=== PATIENT | male | born 1955 | race Caucasian/White ===

== ENCOUNTER 2020-09-18 13:28 | Outpatient (REF) | payer MEDICARE, MEDICAID, SELFPAY ==
--- NOTE | 2020-09-18 13:35 | XR_ITS ---
EXAMINATION: XR LUMBOSACRAL SPINE CLINICAL INFORMATION: Low back pain. COMPARISON: CT abdomen and pelvis of 12/07/2017. TECHNIQUE: Three views of the lumbosacral spine. FINDINGS: There appears be osteopenia in visualized bones. There are 5 non-rib bearing lumbar vertebra. There is a superior endplate compression fracture with loss of approximately 30% height of the L2 vertebral body. There is some marginal spurring present with some sclerosis and this is age-indeterminate, however, this was not present on prior study of December 07, 2017. There is again noted to be superior endplate compression fracture of L5 which is chronic. No spondylolisthesis is identified. There is some mild narrowing of the L5-S1 disc space. Facet arthropathy is seen along the right side L4-S1. There is degenerative spurring inferior aspect of the left sacroiliac joint. There is marginal spurring seen with some bridging anteriorly of the lower thoracic spine. 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 XR/XR lumbar spine 2-3V IMPRESSION: Osteopenia. Interval compression fracture L2 vertebral body since prior CT scan of December 07, 2017. 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
== END 2020-09-18 13:29 | disposition home or self-care (01) ==
LOC: HO.XRAY 13:28
PROVIDERS: Visit Provider Internal Medicine Geriatric Medicine
DX: M54.5 Low back pain (principal)
CPT/HCPCS: 72100

== ENCOUNTER 2020-10-30 12:30 | Outpatient (REF) | payer MEDICARE, MEDICAID, SELFPAY ==
--- NOTE | 2020-10-30 12:35 | MM_ITS ---
EXAMINATION: BONE DENSITOMETRY CLINICAL INDICATION: Screening for osteoporosis. COMPARISON: None (current study represents initial baseline exam). TECHNIQUE: Using a Hashable DXA System (software version: 13.1) manufactured by [employer], dual-energy x-ray absorptiometry was performed of the lumbar spine and left hip. The images are of good technical quality. Summary results are attached. FINDINGS: AP SPINE L1-L4 (excluding L2): The data of L1-L4 has been changed to exclude the L2 vertebral body, because degenerative changes at this level may cause overestimation of lumbar spine density. BMD 1.017 g/cm2, Z-score -1.5, T-score -1.6, osteopenia. LEFT FEMUR, NECK: BMD 0.819 g/cm2, Z-score -1.1, T-score -1.9, osteopenia. LEFT FEMUR, TOTAL: BMD 0.940 g/cm2, Z-score -0.8, T-score -1.1, osteopenia. IDENTIFIED RISK FACTORS: Height loss, history of fracture (adult), secondary osteoporosis, tobacco use (current smoker). HISTORY OF FRACTURE: Compression deformity L5, CT 2018. MEDICATIONS: Calcium. MM/XR DEXA axial skeleton IMPRESSION: 1. DIAGNOSIS: Osteopenia based on the lowest T-score value of -1.9 in the femoral neck applying World Health Organization criteria. 2. 10-YEAR FRACTURE RISK PREDICTION, FRAX: Major osteoporotic fracture (clinical spine, forearm, hip or shoulder) 12.2%. Hip fracture 3.7%. 3. Treatment Recommendations: NOF guidelines recommend consideration for treatment in postmenopausal women and men age 50 and older presenting with the following: -A hip or vertebral (clinical or morphometric) fracture. -T-score less than or equal to -2.5 at the femoral neck or spine after appropriate evaluation to exclude secondary causes. -Low bone mass at the hip or spine and a 10-year fracture probability by FRAX of greater than or equal to 3% for hip fracture or greater than or equal to 20% for major osteoporotic fracture based on the [place] adapted WHO algorithm. 4. Other Recommendations: All treatment decisions require clinical judgment and consideration of individual patient factors, including patient preferences, comorbidities, previous drug use, risk factors not captured in the FRAX model (e.g. frailty, falls, vitamin D deficiency, increased bone turnover, interval significant decline in bone density) and possible under or overestimation of fracture risk by FRAX. Additional medical evaluation for secondary cause of low bone mineral density may be appropriate. FUTURE SCAN RECOMMENDATION: People with diagnosed cases of osteoporosis or at high risk for fracture should have regular bone mineral density tests. For patients eligible for Medicare, routine testing is allowed once every 2 years. The testing frequency can be increased to one year for patients who have rapidly progressing disease, those who are receiving or discontinuing medical therapy to restore bone mass, or have additional risk factors.
== END 2020-10-30 12:31 | disposition home or self-care (01) ==
LOC: HO.MAMMO 12:30
PROVIDERS: PCP Internal Medicine Geriatric Medicine; Visit Provider Internal Medicine Geriatric Medicine
DX: Z13.820 Encounter for screening for osteoporosis (principal); M85.88 Other specified disorders of bone density and structure, other site
CPT/HCPCS: 77080

== ENCOUNTER 2021-04-22 04:23 | Emergency (ER) | payer MEDICARE, MEDICAID, SELFPAY ==
[2021-04-22 04:30] VITALS: BP 125/68; BP 136/80; PULSE 118; PULSE 120; RESP 16; TEMP 36.6; O2SAT 96; O2SAT 97; BMI 23.7
--- NOTE | 2021-04-22 05:14 | ECG_ITS ---
Test Reason : cp Blood Pressure : / mmHG Vent. Rate : 084 BPM Atrial Rate : 084 BPM P-R Int : 152 ms QRS Dur : 134 ms QT Int : 400 ms P-R-T Axes : 064 -51 010 degrees QTc Int : 472 ms Normal sinus rhythm Right bundle branch block Left anterior fascicular block Bifascicular block Septal infarct , age undetermined Abnormal ECG When compared with ECG of 01-MAY-2018 07:12, Vent. rate has increased BY 29 BPM (RBBB and left anterior fascicular block) has replaced Incomplete right bundle branch block Referred By: Kristy Daniels Electronically Signed By:RENETTA HAQ MD
--- NOTE | 2021-04-22 05:32 | ED_ITS ---
HPI - General Adult General Chief complaint: General Medical Stated complaint: Anxiety/palpitations Time Seen by Provider: 04/22/21 05:14 History of Present Illness HPI narrative: Patient is a 65-year-old male with a history of panic attacks. Patient complained of sudden onset of palpitation. Similar to previous bouts of palpitations. Patient on arrival had a great map. Symptom has completely resolved. No chest pain or shortness breath no dizziness no nausea no vomiting. Related Data Allergies Allergy/AdvReac Type Severity Reaction Status Date / Time Penicillins Allergy Unknown RED FACE Unverified 07/30/20 16:25 monosodium glutamate AdvReac Unknown FUNNY Unverified 07/30/20 16:25 TASTE IN MOUTH Monosodium Glutamate Allergy Unknown Uncoded 08/01/16 00:00 PCN Allergy Unknown facial Uncoded 08/01/16 00:00 flushing Penicillin Allergy Unknown Uncoded 11/23/12 00:00 Review of Systems Review of Systems: Constitutional: No Weight loss, No Fever, No Chills, No Night Sweats, No Fatigue, No Malaise ENT/Mouth: No Hearing loss, No Ear Pain, No Nasal Congestion, No Sinus Pain, No Hoarseness, No sore throat, No Rhinorrhea, No Swallowing Difficulty Eyes: No Eye Pain, No Swelling, No Redness, No Foreign Body, No Discharge, No Vision Changes Cardiovascular: No Chest Pain, No SOB, No Dyspnea on Exertion, No Orthopnea, No Edema, No Palpitations Respiratory: No Cough, No Sputum, No Wheezing, No Smoke Exposure, No Dyspnea Gastrointestinal: No Nausea, No Vomiting, No Diarrhea, No Constipation, No abdominal Pain, No Hematochezia, No Melena Genitourinary: no irregular bleeding, No Dysuria, No Urinary Frequency, No Hematuria, No Urinary Incontinence, No Urgency, No Flank Pain, No Urinary Flow Changes, No Hesitancy Musculoskeletal: No joint pain, No Myalgias, No Joint Swelling Skin: No Skin Lesions, No rash Neuro: No Weakness, No Numbness, No Paresthesias, No Loss of Consciousness, No Dizziness, No Headache Psych: No Anxiety/Panic, No Depression, No SI/HI/AH/VH, No Social Issues, Heme/Lymph: No Bruising, No Bleeding,No Lymphadenopathy Endocrine: No Polyuria, No Polydipsia, No Temperature Intolerance PMFSH Past Medical History Attestation statement: The following information was validated with the patient. Social History Social History Advance Directives: No Advance Directives Information Provided: No Physical Exam Vital Signs: Vital Signs: Last Vital Signs Temp 98 F 04/22/21 04:30 Pulse 118 H 04/22/21 04:30 Resp 16 04/22/21 04:30 BP 125/68 04/22/21 04:30 Pulse Ox 97 04/22/21 04:30 Body Mass Index 23.7 Appearance: Alert. Oriented X3. No acute distress. Eyes: Pupils equal, round and reactive to light. ENT: Pharynx normal. Neck: Normal inspection. Neck supple. No lymph nodes noted. No crepitus CVS: Normal heart rate and rhythm. Pulses normal. Normal S1 and S2 Respiratory: No respiratory distress. Breath sounds normal. No Wheezing. No rales Abdomen: Soft and nontender. No rigidity. No distention. good BS x4 Skin: Skin warm and dry. Normal skin color. Normal skin turgor. Extremities: No lower extremity edema. Neurovascular intact to all extremities. No Lacerations. No Rash Neuro: Oriented X 3. No motor deficit. No sensory deficit. Moving all extermities. No slurred speech Medical Decision Making MDM Narrative Medical decision making narrative: Patient well-appearing no acute distress. Symptom has completely resolved. Patient's EKG is unchanged from 2018. Will discharge patient home in stable condition. Patient has had similar bouts when ECG Data Attestation: I personally reviewed and interpreted this ECG as follows: Interpretation: Sinus heart rate was 80 there is evidence for right bundle- branch block. No acute ST segment elevation noted. Discharge Plan Discharge Clinical Impression: Heart palpitations Patient Disposition: Home, Self-Care Instructions: Panic Attack (ED) Referrals: Physician,Unknown [Primary Care Provider] - 2 days
== END 2021-04-22 06:02 | disposition home or self-care (01) ==
PROVIDERS: Emergency Provider Emergency Medicine Emergency Medical Services
DX: R00.2 Palpitations (principal)
CPT/HCPCS: 93005; 99283

== ENCOUNTER 2021-06-01 10:27 | Outpatient (REF) | payer MEDICARE, MEDICAID, SELFPAY ==
--- NOTE | 2021-06-01 12:45 | MHC.AU.ANO ---
Adult Audiological Evaluation Date of Visit: 06/01/21 Customer Engineering Specialist Used: Not Applicable Reason for Appointment: Audiologic evaluation due to hearing difficulties, right ear greater than left, particularly understanding speech when background noise is present. Javier reports he has a history of cerumen in both ears. Cerumen removal was attempted at the Primary Care Physician's office; however, the procedure was unsuccessful with only a small amount of cerumen being able to be removed. Does patient feel they have a hearing loss?: Yes If Yes, Which Ear?: Both Ears When Was Hearing Difficulty First Noticed?: Unsure Has hearing been tested previously?: No Hearing Handicap Inventory: HHIE SCORE: 16 Based on HHIE score, patient has: Mild to moderate perceived hearing handicap Ear History: History of Ear Wax Buildup: Both Ears Ear used on the phone: Left Ear History of occupational noise exposure?: No History: History: No Medical History: Medical History: Mumps,Tobacco Use, Mild COPD, Anxiety and Bipolar disorder, Osteopenia, Compression fracture of vertebra Medication List: Multivitamin, Klonopin, Seroquel, Zyprexa, Lamictal, Vistaril, Ventolin, Albuterol, Atrovent HFA, Omeprazole, Baclofen, Otoscopy: Right Ear: Completely occluding cerumen. Able to remove prior to testing today. Left Ear: Completely occluding cerumen. Able to remove prior to testing today. Tympanometry: Tympanometry performed due to: To assess integrity of the middle ear system Right Ear: Hypercompliant Middle Ear System (Type Ad) Left Ear: Hypercompliant Middle Ear System (Type Ad) Otoacoustic Emissions Not performed at today's visit. Hearing Evaluation: Transducer(s) Used: Insert Earphones Bone Conduction Method: Conventional Audiometry Stimuli Used: Pure Tones Right Ear: Description of Hearing: Normal hearing thresholds at 250-1000 Hz, sloping to a moderately-severe sensorineural hearing loss at 4000 Hz, rising to moderate loss at 8000 Hz Left Ear: Description of Hearing: Normal hearing thresholds at 250-1000 Hz, sloping to a moderately-severe sensorineural hearing loss at 6000 Hz, rising to moderate loss at 8000 Hz Speech Recognition Threshold (SRT): Method Used: Monitored Live Voice Stimuli Used: Spondee Words Right Ear: 20 dB HL Left Ear: 20 dB HL Word Discrimination: Method: Recorded Lists Word Lists Used: NU-6 Right Ear: 92% at 60 dB HL Left Ear: 88% at 60 dB HL QuickSIN: Binaural Quick SIN Test: 2 dB SNR Loss. This score falls within the normal range suggesting Javier does not experience any more difficulty than expected understanding speech with increasing levels of background noise in this controlled test environment. Interpretation of Results: With this moderately-severe high frequency sensorineural hearing loss, Javier can hear , but may have difficulty understanding speech, particularly when someone is speaking to him from a distance or background noise is present. It is likely the significant amount of impacted cerumen, right ear greater than left, was causing the loudness sounds and speech to be reduced with a muffled sound quality. In addition, several of Javier's medications (such as Klonopin and Seroquel) may cause the auditory system and processing of auditory information to slow down which can influence speech understanding, particularly when noise is present or Javier's attention is not focused on the speaker. Recommendations: - Since the loudness and quality of sound and speech will increase given the significant amount of cerumen removed today, I would like Javier to get used to the new sound and determine if he continues to experience hearing difficulties. The results of today's test suggest he may be a candidate to try binaural hearing aids. - Will send a 6 month audiologic re-evaluation reminder card. If hearing changes or Javier reports his hearing difficulties are interfering with daily communication, a trial period with amplification will be discussed at that appointment. Diagnosis: Primary Diagnosis: H90.3 Bilateral Sensorineural Hearing Loss Secondary Diagnosis: H61.23 Impacted Cerumen, Bilateral Services Performed: Comprehensive Audiological Evaluation (CPT 92657) Tympanometry (CPT 06065) Signature: Provider: Lukasz Bustamante, [facility]
== END 2021-06-01 10:28 | disposition home or self-care (01) ==
LOC: HO.SH 10:27
PROVIDERS: PCP Internal Medicine Geriatric Medicine; Visit Provider Registered Nurse Community Health
DX: H90.3 Sensorineural hearing loss, bilateral (principal); H61.23 Impacted cerumen, bilateral
CPT/HCPCS: 92557; 92567

== ENCOUNTER 2022-09-15 15:41 | Outpatient (REF) | payer MEDICARE, MEDICAID, SELFPAY ==
--- NOTE | ~2022-09-15 | CT_ITS ---
EXAMINATION: CT CHEST SCREENING CLINICAL INFORMATION: Current smoker. 51 pack year history. COMPARISON: Previous chest CT April 2019 and chest x-ray February 2020 TECHNIQUE: Multidetector volumetric CT imaging of the chest is performed without contrast using low dose technique. Additional 2D coronal and sagittal reformatted images and axial 3D maximum intensity projection (MIP) images are generated on the CT workstation. This CT examination was performed using dose optimization techniques as appropriate, variously including the following: *Automated exposure control *Adjustment of mA and/or kV according to patient size (this includes techniques or standardized protocols for targeted exams where dose is matched to indication/reason for exam; i.e. extremities or head) *Use of iterative reconstruction technique DLP: 55 mGy-cm FINDINGS: LUNGS: There is evidence of emphysema. There are increased peripheral reticular markings questionable for mild interstitial lung disease. There is linear scarring or subsegmental atelectasis at the lung bases. There is increased soft tissue seen at the ronan and in the left proximal mainstem bronchus. MEDIASTINUM: The mediastinum is normal. CORONARY ARTERY CALCIFICATION: Mild PLEURA: There is no pleural effusion. No pleural mass or thickening. AXILLA: No lymphadenopathy. UPPER ABDOMEN: Gallstones. Small left renal stone. Diverticulosis of the colon. OSSEOUS STRUCTURES: Increased thoracic kyphosis and degenerative changes with ossification of the anterior longitudinal ligament. L2 vertebral body compression fracture. CT/CT lung screening IMPRESSION: Emphysema and question mild peripheral interstitial. Increased soft tissue in the ronan and left proximal mainstem bronchus. Mild coronary artery calcification. ASSESSMENT: Lung-RADS category 4A: Suspicious RECOMMENDATION: Low-dose chest CT follow-up in 3 months recommended.
== END 2022-09-15 15:42 | disposition home or self-care (01) ==
LOC: HO.CT 15:41
PROVIDERS: PCP Internal Medicine Geriatric Medicine; Visit Provider Physician Assistant Medical
DX: Z12.2 Encounter for screening for malignant neoplasm of respiratory organs (principal); F17.210 Nicotine dependence, cigarettes, uncomplicated
CPT/HCPCS: 71271

== ENCOUNTER → 2022-09-23 14:01 | Outpatient (BNVA) | payer MEDICARE, MEDICAID, SELFPAY | PROVIDERS: PCP Internal Medicine; Visit Provider Physician Assistant Medical | DX: F17.210 Nicotine dependence, cigarettes, uncomplicated (principal) | CPT/HCPCS: G0296 ==

== ENCOUNTER 2023-10-04 15:21 | Outpatient (REF) | payer MEDICARE, SELFPAY ==
--- NOTE | ~2023-10-04 | CT_ITS ---
EXAMINATION: CT CHEST SCREENING CLINICAL INFORMATION: Current smoker with 40 pack year history COMPARISON: Previous CTs, most recent, 09/15/2022 TECHNIQUE: Multidetector volumetric CT imaging of the chest is performed without contrast using low dose technique. Additional 2D coronal and sagittal reformatted images and axial 3D maximum intensity projection (MIP) images are generated on the CT workstation. This CT examination was performed using dose optimization techniques as appropriate, variously including the following: *Automated exposure control *Adjustment of mA and/or kV according to patient size (this includes techniques or standardized protocols for targeted exams where dose is matched to indication/reason for exam; i.e. extremities or head) *Use of iterative reconstruction technique DLP: 66 mGy-cm FINDINGS: STRATEGIC PROCUREMENT MANAGER: Mild basilar atelectasis. LUNGS: Trachea and bronchi are patent. Small amount of right-sided debris identified within the trachea, likely mucus. Resolution soft tissue density at the ronan and left mainstem bronchus. Mild bronchial wall thickening. Centrilobular emphysema. Mild peripheral increased reticular markings and atelectasis. MEDIASTINUM: Unremarkable thyroid. Nonspecific mediastinal lymph nodes. No pathologic lymphadenopathy. Nonenlarged heart. No pericardial effusion. Nonaneurysmal aorta. Nonenlarged pulmonary arteries. CORONARY ARTERY CALCIFICATION: Mild PLEURA: There is no pleural effusion. No pleural mass or thickening. AXILLA: No lymphadenopathy. UPPER ABDOMEN: Cholelithiasis. 1.9 cm right renal cyst. 3 mm left upper pole nonobstructing renal calculus. OSSEOUS STRUCTURES: Kyphosis. CT/CT lung screening IMPRESSION: Stable postoperative changes, mild peripheral increased reticular markings in scattered atelectasis. No suspicious lung nodules. Redemonstration cholelithiasis, right upper pole renal cyst and nonobstructing left upper pole renal calculus. ASSESSMENT: Lung-RADS category 1: Negative RECOMMENDATION: Routine annual low-dose CT screening in 12 months.
== END 2023-10-04 15:22 | disposition home or self-care (01) ==
LOC: HO.CT 15:21
PROVIDERS: PCP Internal Medicine Geriatric Medicine; Visit Provider Physician Assistant Medical
DX: Z12.2 Encounter for screening for malignant neoplasm of respiratory organs (principal); F17.210 Nicotine dependence, cigarettes, uncomplicated
CPT/HCPCS: 71271

== ENCOUNTER 2023-10-11 13:32 | Outpatient (AMB) | payer MEDICARE, MEDICAID, SELFPAY ==
[2023-10-11 13:37] VITALS: BP 100/62; PULSE 72; O2SAT 98; BMI 29.6
--- NOTE | 2023-10-11 13:37 | MHC.OFFVIS ---
Intake Vital Signs 10/11/23 13:37 Height 5 ft 10 in Weight 206 lb 2.115 oz BMI 29.6 BP 100/62 Blood Pressure Location Lt brachial Position Sitting Pulse 72 Pulse Source Doppler Pulse Oximetry (%) 98 Oxygen Delivery Method Room Air Intake Visit Reasons: Pulmonary Emphysema Allergies Penicillins Allergy (Unknown, Verified 10/11/23 13:40) Facial flushing and red face monosodium glutamate Adverse Reaction (Unknown, Verified 10/11/23 13:40) Funny taste in mouth HPI Pulmonary Emphysema HPI Details 68-year-old gentleman, active approximately 40 pack-year smoker referred for evaluation of pulmonary concerns. Patient states that he has been wheezing intermittently with exertion and sometimes at night. He has been using Atrovent 3 times a day and albuterol several times a day with suboptimal control of his symptoms. Patient states that he previously tried in was unable to finish pulmonary function test. He denies prior personal or family history of pulmonary diseases. [facility] Medical History (Updated 10/11/23 @ 13:59 by Andrea Guaman MD) Nicotine dependence, cigarettes, uncomplicated History of small bowel obstruction Bipolar disorder with psychotic features Sensorineural hearing loss (SNHL) of both ears GERD (gastroesophageal reflux disease) Osteopenia Surgical History (Updated 09/23/22 @ 14:03 by Marichuy Metcalf PA-C) History of laparotomy Social History (Updated 10/11/23 @ 13:42 by ANGELITA Crowe) Patient Tobacco Use Status: Current everyday Tobacco user Tobacco use type: Cigarette Cigarette Packs Per Day: 0.5 Review of Systems Const Denies daytime sleepiness, Denies excessive sweating, Denies fatigue, Denies fever(s), Denies lethargy, Denies malaise, Denies night sweats, Denies snoring and Denies weight loss Eyes Denies blurry vision and Denies itchy eyes ENT Denies nasal congestion, Denies post nasal drip, Denies sinus pain, Denies sinus pressure and Denies other ( Thrush) Card Denies chest pain, Denies pedal edema, Denies dyspnea, Denies orthopnea and Denies paroxysmal nocturnal dyspnea Resp Denies cough, Denies hemoptysis, Denies excessive phlegm production, Denies dyspnea, Denies snoring and Denies wheezing GI Denies abdominal pain and Denies heartburn Musc Denies myalgias, Denies arthralgias and Denies joint swelling Skin/Breast Denies rash Neuro Denies memory loss and Denies seizure-like activity Psych Denies abnormal sleep pattern, Denies anxiety and Denies memory loss Endo Denies excessive sweating, Denies fatigue and Denies heat intolerance Sebas/Lymph Denies easy bruising Aller/Immun Denies itchy eyes, Denies seasonal rhinorrhea and Denies wheezing Physical Exam Vital Signs: Last Vital Signs Pulse 72 10/11/23 13:37 BP 100/62 10/11/23 13:37 Pulse Ox 98 10/11/23 13:37 Oxygen Delivery Method Room Air 10/11/23 13:37 BMI result Body Mass Index 29.6 Const General: no acute distress and alert Nutritional Appearance: not obese Orientation/consciousness: Other orientation findings ( oriented) HEENT Head: Yes atraumatic Eyes General: appearance normal, both eyes and all related structures Sclerae: sclerae normal EOM: EOMs intact bilaterally Neck Neck: Yes supple Lymphatic: no lymphadenopathy noted Resp Effort & Inspection: normal respiratory effort and no use of accessory muscles Auscultation: clear to auscultation bilaterally Cardio Rate: regular rate Rhythm: regular rhythm Heart sounds: no gallops, no murmurs and no rubs Skin General skin exam: other ( warm) Extrem General: No clubbing, No cyanosis and No edema Assessment & Plan Assessment & Plan (1) Pulmonary emphysema: Code(s): J43.9 - Emphysema, unspecified Plan: Emphysema, unclear if underlying COPD. Symptoms suboptimally controlled on Atrovent, will switch to Anoro. When symptoms more stable, will consider obtaining follow-up pulmonary function test. Continue albuterol MDI. (2) Pulmonary nodules: Code(s): R91.8 - Other nonspecific abnormal finding of lung field Plan: Previously not pulmonary nodules, follow-up CT chest is pending, will review when available. Medications: New Anoro Ellipta 62.5-25 mcg/actuation (umeclidinium-vilanterol) 1 inh inhalation DAILY 30 days 1 ea 6RF NS Coding Level of Care Code New Pt Level 4 (24720) Diagnoses Pulmonary emphysema J43.9 Pulmonary nodules R91.8
== END 2023-10-11 13:55 | disposition home or self-care (01) ==
PROVIDERS: PCP Internal Medicine; Referring Provider Internal Medicine Geriatric Medicine; Visit Provider Internal Medicine Pulmonary Disease
DX: J43.9 Emphysema, unspecified (principal); R91.8 Other nonspecific abnormal finding of lung field
CPT/HCPCS: 99204

== ENCOUNTER → 2023-10-11 13:32 | Outpatient (BNVA) | payer MEDICARE, OTHER, SELFPAY | PROVIDERS: PCP Internal Medicine; Referring Provider Internal Medicine Geriatric Medicine; Visit Provider Internal Medicine Pulmonary Disease | DX: J43.9 Emphysema, unspecified (principal); R91.8 Other nonspecific abnormal finding of lung field | CPT/HCPCS: 99202 ==

== ENCOUNTER 2023-10-20 09:29 | Outpatient (REF) | payer MEDICARE, OTHER, SELFPAY ==
[2023-10-20 12:29] LABS: Basophils Absolute Auto 0.1 X10*3/uL (0.0-0.2); Basophils Percent Auto 1.2 % (0-2); Eosinophils Absolute Auto 0.6 X10*3/uL (0.0-0.4); Eosinophils Percent Auto 5.8 % (0-4); Hematocrit 47.5 % (42.0-52.0); Hemoglobin 15.9 g/dl (14.0-18.0); Imm Gran Abs Auto 0.05 X10*3/uL (0.00-0.03); Imm Gran Pct Auto 0.5 % (0.0-0.4); Lymphocytes Absolute Auto 2.8 X10*3/uL (1.2-4.9); Lymphocytes Percent Auto 29.3 % (20-40); MANUAL DIFF FLAG NO; Mean Corpuscular HGB Conc 33.5 g/dl (31.0-36.0); Mean Corpuscular Hemoglobin 32.1 pg (27.0-33.0); Mean Platelet Volume 10.8 fL (9.4-12.4); Monocytes Absolute Auto 0.9 X10*3/uL (0.1-1.2); Monocytes Percent Auto 9.5 % (2-11); Neutrophils Absolute Auto 5.1 x10*3/uL (2.0-8.3); Neutrophils Percent Auto 53.7 % (45-73); Platelet Count 246 X10*3/uL (160-400); Red Blood Count 4.95 X10*6/uL (4.60-5.80); Red Cell Distribution Width 13.1 % (11.0-16.0); White Blood Count 9.5 X10*3/uL (4.8-10.8)
[2023-10-20 13:14] LABS: Alanine Aminotransferase 20 U/L (0-40); Albumin Level 4.1 g/dL (3.5-5.0); Alkaline Phosphatase 92 U/L (39-117); Anion Gap 14 (12-20); Aspartate Amino Transferase 23 U/L (5-37); Bilirubin Total 0.9 mg/dL (0.0-1.0); Blood Urea Nitrogen 17 mg/dL (9-16); Calcium 9.4 mg/dL (8.4-10.2); Carbon Dioxide 23 mmol/L (22-29); Chloride 107 mmol/L (96-108); Cholesterol 130 mg/dL (<200); Estimated Glomerular Filt Rate > 60; Glucose Random 104 mg/dL (60-115); HDL Cholesterol 51 mg/dL (>40); LDL Cholesterol Calculated 57 mg/dL (<100); Potassium 4.1 mmol/L (3.3-5.1); Sodium 140 mmol/L (135-145); Total Protein 7.1 g/dL (6.5-8.0); Triglycerides 113 mg/dL (<150)
== END 2023-10-20 09:30 | disposition home or self-care (01) ==
LOC: HO.HHCL 09:29
PROVIDERS: Visit Provider Internal Medicine Geriatric Medicine
DX: Z00.00 Encounter for general adult medical examination without abnormal findings (principal); J43.9 Emphysema, unspecified; E78.00 Pure hypercholesterolemia, unspecified; Z28.21 Immunization not carried out because of patient refusal
CPT/HCPCS: 36415; 80053; 80061; 85025

== ENCOUNTER 2023-11-30 13:34 | Outpatient (AMB) | payer MEDICARE, SELFPAY ==
[2023-11-30 13:47] VITALS: BP 102/62; PULSE 71; O2SAT 96; BMI 30.3
--- NOTE | 2023-11-30 13:47 | A.OFFVIS_ITS ---
Intake Vital Signs 11/30/23 13:47 Height 5 ft 10 in Weight 211 lb BMI 30.3 BP 102/62 Blood Pressure Location Rt brachial Position Sitting Pulse 71 Pulse Source Doppler Pulse Oximetry (%) 96 Intake Visit Reasons: Pulmonary Emphysema Allergies Penicillins Allergy (Unknown, Verified 10/11/23 13:40) Facial flushing and red face monosodium glutamate Adverse Reaction (Unknown, Verified 10/11/23 13:40) Funny taste in mouth HPI Pulmonary Emphysema HPI Details 68-year-old gentleman, active approximat radha 40 pack-year smoker now followed for COPD of unclear severity as patient is not able to perform pulmonary function testing. After the last office visit patient was switched from Atrovent to Anoro with significant improvement in his symptoms. He denies recent exacerbations. He rarely uses his Ventolin inhaler. [facility] Medical History (Updated 10/11/23 @ 13:59 by Andrea Guaman MD) Nicotine dependence, cigarettes, uncomplicated History of small bowel obstruction Bipolar disorder with psychotic features Sensorineural hearing loss (SNHL) of both ears GERD (gastroesophageal reflux disease) Osteopenia Surgical History (Updated 09/23/22 @ 14:03 by Marichuy Metcalf PA-C) History of laparotomy Social History Patient Tobacco Use Status: Current everyday Tobacco user Tobacco use type: Cigarette Cigarette Packs Per Day: 0.5 Review of Systems Const Denies daytime sleepiness, Denies excessive sweating, Denies fatigue, Denies fever(s), Denies lethargy, Denies malaise, Denies night sweats, Denies snoring and Denies weight loss Eyes Denies blurry vision and Denies itchy eyes ENT Denies nasal congestion, Denies post nasal drip, Denies sinus pain, Denies sinus pressure and Denies other ( Thrush) Card Denies chest pain, Denies pedal edema, Denies dyspnea, Denies orthopnea and Denies paroxysmal nocturnal dyspnea Resp Denies cough, Denies hemoptysis, Denies excessive phlegm production, Denies dyspnea, Denies snoring and Denies wheezing GI Denies abdominal pain and Denies heartburn Musc Denies myalgias, Denies arthralgias and Denies joint swelling Skin/Breast Denies rash Neuro Denies memory loss and Denies seizure-like activity Psych Denies abnormal sleep pattern, Denies anxiety and Denies memory loss Endo Denies excessive sweating, Denies fatigue and Denies heat intolerance Sebas/Lymph Denies easy bruising Aller/Immun Denies itchy eyes, Denies seasonal rhinorrhea and Denies wheezing Physical Exam Vital Signs: Last Vital Signs Pulse 71 11/30/23 13:47 BP 102/62 11/30/23 13:47 Pulse Ox 96 11/30/23 13:47 BMI result Body Mass Index 30.3 Const General: no acute distress and alert Nutritional Appearance: not obese Orientation/consciousness: Other orientation findings ( oriented) HEENT Head: Yes atraumatic Eyes General: appearance normal, both eyes and all related structures Sclerae: sclerae normal EOM: EOMs intact bilaterally Neck Neck: Yes supple Lymphatic: no lymphadenopathy noted Resp Effort & Inspection: normal respiratory effort and no use of accessory muscles Auscultation: clear to auscultation bilaterally Cardio Rate: regular rate Rhythm: regular rhythm Heart sounds: no gallops, no murmurs and no rubs Skin General skin exam: other ( warm) Extrem General: No clubbing, No cyanosis and No edema Assessment & Plan Assessment & Plan (1) Pulmonary emphysema: Code(s): J43.9 - Emphysema, unspecified Plan: Well controlled on current regimen of Anoro MDI. Continue current regimen. (2) Nicotine dependence, cigarettes, uncomplicated: Comment: (current smoker, onset 16, 1ppd x 35yrs, 35pyh) Code(s): F17.210 - Nicotine dependence, cigarettes, uncomplicated Plan: Results of lung cancer screening reviewed. No worrisome nodules at this time. Continue with yearly screening, next October of 2024. Coding Level of Care Code Est Pt Level 4 (36372) Diagnoses Pulmonary emphysema J43.9 Nicotine dependence, cigarettes, uncomplicated F17.210
== END 2023-11-30 14:00 | disposition home or self-care (01) ==
PROVIDERS: PCP Internal Medicine; Visit Provider Internal Medicine Pulmonary Disease
DX: J43.9 Emphysema, unspecified (principal); F17.210 Nicotine dependence, cigarettes, uncomplicated
CPT/HCPCS: 99214

== ENCOUNTER → 2023-11-30 13:34 | Outpatient (BNVA) | payer MEDICARE, OTHER, SELFPAY | PROVIDERS: PCP Internal Medicine; Visit Provider Internal Medicine Pulmonary Disease | DX: J43.9 Emphysema, unspecified (principal); F17.210 Nicotine dependence, cigarettes, uncomplicated | CPT/HCPCS: 99212 ==

== ENCOUNTER 2024-06-05 13:29 | Outpatient (AMB) | payer MEDICARE, MEDICAID, SELFPAY ==
[2024-06-05 13:36] VITALS: BP 102/62; PULSE 77; O2SAT 93; BMI 29.6
--- NOTE | 2024-06-05 13:36 | A.OFFVIS_ITS ---
Vital Signs 06/05/24 13:36 Height 5 ft 10 in Weight 206 lb 2.115 oz BMI 29.6 BP 102/62 Blood Pressure Location Rt brachial Position Sitting Pulse 77 Pulse Source Doppler Pulse Oximetry (%) 93 Oxygen Delivery Method Room Air Intake Visit Reasons: Pulmonary Emphysema Allergies Penicillins Allergy (Unknown, Verified 10/11/23 13:40) Facial flushing and red face monosodium glutamate Adverse Reaction (Unknown, Verified 10/11/23 13:40) Funny taste in mouth HPI HPI Pulmonary Emphysema: Details: 68-year-old gentleman, active approximately 40 pack-year smoker now followed for COPD of unclear severity as patient is not able to perform pulmonary function testing. He continues on Anoro and albuterol MDI with reasonable control of his underlying COPD symptoms. He does complain of nocturnal cough and GERD like symptoms. [facility] Medical History (Updated 06/05/24 @ 14:24 by Andrea Guaman MD) Nicotine dependence, cigarettes, uncomplicated History of small bowel obstruction Bipolar disorder with psychotic features Sensorineural hearing loss (SNHL) of both ears GERD (gastroesophageal reflux disease) Osteopenia Surgical History (Updated 09/23/22 @ 14:03 by Marichuy Metcalf PA-C) History of laparotomy Social History Patient Tobacco Use Status: Current everyday Tobacco user Tobacco use type: Cigarette Cigarette Packs Per Day: 0.5 Review of Systems Const Denies daytime sleepiness, Denies excessive sweating, Denies fatigue, Denies fever(s), Denies lethargy, Denies malaise, Denies night sweats, Denies snoring and Denies weight loss Eyes Denies blurry vision and Denies itchy eyes ENT Denies nasal congestion, Denies post nasal drip, Denies sinus pain, Denies sinus pressure and Denies other ( Thrush) Card Denies chest pain, Denies pedal edema, Denies dyspnea, Denies orthopnea and Denies paroxysmal nocturnal dyspnea Resp Denies cough, Denies hemoptysis, Denies excessive phlegm production, Denies dyspnea, Denies snoring and Denies wheezing GI Denies abdominal pain and Denies heartburn Musc Denies myalgias, Denies arthralgias and Denies joint swelling Skin/Breast Denies rash Neuro Denies memory loss and Denies seizure-like activity Psych Denies abnormal sleep pattern, Denies anxiety and Denies memory loss Endo Denies excessive sweating, Denies fatigue and Denies heat intolerance Sebas/Lymph Denies easy bruising Aller/Immun Denies itchy eyes, Denies seasonal rhinorrhea and Denies wheezing Physical Exam Vital Signs: Last Vital Signs Pulse 77 06/05/24 13:36 BP 102/62 06/05/24 13:36 Pulse Ox 93 06/05/24 13:36 Oxygen Delivery Method Room Air 06/05/24 13:36 BMI result Body Mass Index 29.6 Const General: no acute distress and alert Nutritional Appearance: not obese Orientation/consciousness: Other orientation findings ( oriented) HEENT Head: Yes atraumatic Eyes General: appearance normal, both eyes and all related structures Sclerae: sclerae normal EOM: EOMs intact bilaterally Neck Neck: Yes supple Lymphatic: no lymphadenopathy noted Resp Effort & Inspection: normal respiratory effort and no use of accessory muscles Auscultation: clear to auscultation bilaterally Cardio Rate: regular rate Rhythm: regular rhythm Heart sounds: no gallops, no murmurs and no rubs Skin General skin exam: other ( warm) Extrem General: No clubbing, No cyanosis and No edema Assessment & Plan Assessment & Plan (1) Pulmonary emphysema: Code(s): J43.9 - Emphysema, unspecified Category: Medical Plan: Well controlled on Anoro and albuterol MDI. Continue current regimen. (2) Nicotine dependence, cigarettes, uncomplicated: Comment: (current smoker, onset 16, 1ppd x 35yrs, 35pyh) Code(s): F17.210 - Nicotine dependence, cigarettes, uncomplicated Category: Medical Plan: Continue with yearly screening, next in October of 2024, ordered. (3) GERD (gastroesophageal reflux disease): Code(s): K21.9 - Gastro-esophageal reflux disease without esophagitis Category: Medical Plan: Now with worsening symptoms, will increase PPI to omeprazole 40 mg b.i.d.. Orders: Orders CT lung screening 10/26/24 F17.210 - Nicotine dependence, cigarettes, uncomplicated Medications: Changed From omeprazole 20 mg PO DAILY F17.210 - Nicotine dependence, cigarettes, uncomplicated To omeprazole 40 mg PO BID 30 days 60 caps 6RF F17.210 - Nicotine dependence, cigarettes, uncomplicated Coding Level of Care Code Est Pt Level 4 (74176) Diagnoses Pulmonary emphysema J43.9 Nicotine dependence, cigarettes, uncomplicated F17.210 GERD (gastroesophageal reflux disease) K21.9
== END 2024-06-05 14:05 | disposition home or self-care (01) ==
PROVIDERS: PCP Internal Medicine; Visit Provider Internal Medicine Pulmonary Disease
DX: J43.9 Emphysema, unspecified (principal); F17.210 Nicotine dependence, cigarettes, uncomplicated; K21.9 Gastro-esophageal reflux disease without esophagitis
CPT/HCPCS: 99214

== ENCOUNTER → 2024-06-05 13:29 | Outpatient (BNVA) | payer MEDICARE, MEDICAID, SELFPAY | PROVIDERS: PCP Internal Medicine; Visit Provider Internal Medicine Pulmonary Disease | DX: J43.9 Emphysema, unspecified (principal); K21.9 Gastro-esophageal reflux disease without esophagitis; F17.210 Nicotine dependence, cigarettes, uncomplicated | CPT/HCPCS: 99212 ==

== ENCOUNTER 2024-09-13 13:27 | Outpatient (REF) | payer MEDICARE, MEDICAID, SELFPAY | END 2024-09-13 13:28 | disposition home or self-care (01) | LOC: HO.CT 13:27 | PROVIDERS: Absent Provider Internal Medicine Pulmonary Disease; PCP Internal Medicine Geriatric Medicine; Visit Provider Physician Assistant Medical | DX: Z12.2 Encounter for screening for malignant neoplasm of respiratory organs (principal); F17.210 Nicotine dependence, cigarettes, uncomplicated | CPT/HCPCS: 71271 ==

== ENCOUNTER 2024-10-08 13:24 | Outpatient (AMB) | payer MEDICARE, MEDICAID, SELFPAY ==
[2024-10-08 13:32] VITALS: BP 98/60; PULSE 62; O2SAT 97; BMI 29.6
--- NOTE | 2024-10-08 13:32 | A.OFFVIS_ITS ---
Vital Signs 10/08/24 13:32 Height 5 ft 10 in Weight 206 lb BMI 29.6 BP 98/60 Blood Pressure Location Lt brachial Position Sitting Pulse 62 Pulse Source Pulse Oximeter Pulse Oximetry (%) 97 Oxygen Delivery Method Room Air Intake Visit Reasons: Pulmonary Emphysema Coal Cutter Required: No Allergies Penicillins Allergy (Unknown, Verified 10/08/24 13:34) Facial flushing and red face monosodium glutamate Adverse Reaction (Unknown, Verified 10/08/24 13:34) Funny taste in mouth HPI HPI Pulmonary Emphysema: Details: 69-year-old gentleman, active approximately 40 pack-year smoker now followed for COPD of unclear severity as patient is not able to perform pulmonary function testing. He continues on Anoro and albuterol MDI with reasonable control of his underlying COPD symptoms. His GERD symptoms reasonably well controlled on PPI. [facility] Medical History (Updated 06/05/24 @ 14:24 by Andrea Guaman MD) Nicotine dependence, cigarettes, uncomplicated History of small bowel obstruction Bipolar disorder with psychotic features Sensorineural hearing loss (SNHL) of both ears GERD (gastroesophageal reflux disease) Osteopenia Surgical History (Updated 09/23/22 @ 14:03 by Marichuy Metcalf PA-C) History of laparotomy Social History (Updated 10/08/24 @ 13:35 by ANGELITA Mejia) Patient Tobacco Use Status: Current everyday Tobacco user Tobacco use type: Cigarette Cigarette Packs Per Day: 0.5 Cigarettes Per Day: 15 Review of Systems Const Denies daytime sleepiness, Denies excessive sweating, Denies fatigue, Denies fever(s), Denies lethargy, Denies malaise, Denies night sweats, Denies snoring and Denies weight loss Eyes Denies blurry vision and Denies itchy eyes ENT Denies nasal congestion, Denies post nasal drip, Denies sinus pain, Denies sinus pressure and Denies other ( Thrush) Card Denies chest pain, Denies pedal edema, Denies dyspnea, Denies orthopnea and Denies paroxysmal nocturnal dyspnea Resp Denies cough, Denies hemoptysis, Denies excessive phlegm production, Denies dyspnea, Denies snoring and Denies wheezing GI Denies abdominal pain and Denies heartburn Musc Denies myalgias, Denies arthralgias and Denies joint swelling Skin/Breast Denies rash Neuro Denies memory loss and Denies seizure-like activity Psych Denies abnormal sleep pattern, Denies anxiety and Denies memory loss Endo Denies excessive sweating, Denies fatigue and Denies heat intolerance Sebas/Lymph Denies easy bruising Aller/Immun Denies itchy eyes, Denies seasonal rhinorrhea and Denies wheezing Physical Exam Vital Signs: Last Vital Signs Pulse 62 10/08/24 13:32 BP 98/60 10/08/24 13:32 Pulse Ox 97 10/08/24 13:32 Oxygen Delivery Method Room Air 10/08/24 13:32 BMI result Body Mass Index 29.6 Const General: no acute distress and alert Nutritional Appearance: not obese Orientation/consciousness: Other orientation findings ( oriented) HEENT Head: Yes atraumatic Eyes General: appearance normal, both eyes and all related structures Sclerae: sclerae normal EOM: EOMs intact bilaterally Neck Neck: Yes supple Lymphatic: no lymphadenopathy noted Resp Effort & Inspection: normal respiratory effort and no use of accessory muscles Auscultation: clear to auscultation bilaterally Cardio Rate: regular rate Rhythm: regular rhythm Heart sounds: no gallops, no murmurs and no rubs Skin General skin exam: other ( warm) Extrem General: No clubbing, No cyanosis and No edema Assessment & Plan Assessment & Plan (1) Pulmonary emphysema: Code(s): J43.9 - Emphysema, unspecified Category: Medical Plan: Well controlled on current regimen of Anoro and albuterol MDI. Continue current regimen. (2) Nicotine dependence, cigarettes, uncomplicated: Comment: (current smoker, onset 16, 1ppd x 35yrs, 35pyh) Code(s): F17.210 - Nicotine dependence, cigarettes, uncomplicated Category: Medical Plan: Lung cancer screening CT chest results are not available for this visit. On my review no worrisome pulmonary nodules. Continue with yearly screening, next in October of 2025. (3) GERD (gastroesophageal reflux disease): Code(s): K21.9 - Gastro-esophageal reflux disease without esophagitis Category: Medical Plan: Well controlled on current therapy. Continue b.i.d. omeprazole. Coding Level of Care Code Est Pt Level 4 (76175) Complex EM visit Add On G2211 Diagnoses Pulmonary emphysema J43.9 Nicotine dependence, cigarettes, uncomplicated F17.210 GERD (gastroesophageal reflux disease) K21.9
== END 2024-10-08 13:47 | disposition home or self-care (01) ==
PROVIDERS: PCP Internal Medicine; Visit Provider Internal Medicine Pulmonary Disease
DX: J43.9 Emphysema, unspecified (principal); F17.210 Nicotine dependence, cigarettes, uncomplicated; K21.9 Gastro-esophageal reflux disease without esophagitis
CPT/HCPCS: 99214; G2211

== ENCOUNTER → 2024-10-08 13:24 | Outpatient (BNVA) | payer MEDICARE, MEDICAID, SELFPAY | PROVIDERS: PCP Internal Medicine; Visit Provider Internal Medicine Pulmonary Disease | DX: J43.9 Emphysema, unspecified (principal); F17.210 Nicotine dependence, cigarettes, uncomplicated; K21.9 Gastro-esophageal reflux disease without esophagitis; Z79.899 Other long term (current) drug therapy | CPT/HCPCS: 99212 ==

== ENCOUNTER 2025-03-27 12:09 | Outpatient (REF) | payer MEDICARE, MEDICAID, SELFPAY ==
--- OUTSIDE RECORDS SUMMARY | 2025-03-27 13:05 | XMS_ITS | Encounter Summary ---
Author Organization [employer] Address [address] [place] [address] Care Team Providers Care Bonded Strand Operator Name Role Phone Name, Petey EWING Primary Care Provider [phone] Reason for Visit * Reason Onset Date Comments Referral 12/27/2023 Encounter Details Date Type Department Care Team ([facility] st Contact Info) Description 12/27/[address] [facility] [address] [place] [address] Name, MD Petey [address] [place] [address] Referral Social History Tobacco Use Types Packs/Day Years Used Date Smoking Tobacco: Every Day Cigarettes Alcohol Use Standard Drinks/Week Comments Yes 0 (1 standard drink = 0.6 oz pur e alcohol) occassionally Depression Answer Date Recorded Patient Health Questionnaire-9 Score 7 09/04/2023 Patient Health Questionnaire-9 Score 7 09/04/2023 Last PHQ-9: Questionnaire Data Not on file 1 Housing Stability Answer Date Recorded What is your housing situation today? I have nayan moreno 08/29/[address] you li ve. Do you have problems with any of the following? None of the above 08/29/2023 Food Insecurity Answer Date Recorded Within the past 12 months, y ou worried that your food would run out before you got money to buy more: Never True 08/29/2023 Within the past 12 months,th e food you bought just didn't last and you didn't have enough money to get more: Never True Transportation Answer Date Recorded In the past 12 months, has l ack of transportation kept you from medical appts, meetings, work or from getting things needed for daily living? No 08/29/2023 Utilities Answer Date Recorded In the past 12 months, has t he electric, gas, oil or water company threatened to shut off services in your home? No 08/29/2023 Depression Answer Date Recorded Patient Health Questionnaire-2 Score 4 09/04/2023 Sex and Gender Information Value Date Recorded Sex Assigned at Male 09/12/2022 10:23 AM EDT Legal Sex Male 10:23 AM EDT Gender Identity Male 09/12/2022 10:23 AM EDT Sexual Orientation Straight 09/12/2022 10 :23 AM EDT documented as of this encounter Miscellaneous Notes * Telephone Encounter - Manisha Orosco RN - 12/28/2023 4:06 PM EST T/C to [phone] x 2 pm to [facility] for further enquiry for below message, no answer. LVM to callback on [phone]. * Telephone Encounter - Mike Ortez - 12/28/2023 3:08 PM EST Tc from [facility] ([facility]) returning call regarding message prior. * Telephone Encounter - Manisha Orosco RN - 12/28/2023 1:17 PM EST T/C to [phone] to [facility] for further enquiry for below message, no answer. LVM to call back on [phone]. * Telephone Encounter - Mike Ortez - 12/27/2023 4:13 PM EST TC from [facility] ([facility] Outreach) worker requesting new referral DATE: N/A TIME: N/A Location: [address] [place] [address] Facility: [facility] Dr. Martinez Type of Specialist: Podiatry If any questions you can contact [facility] at [phone] documented in this encounter Plan of Treatment Upcoming Encounters Date Type Department Care Team (Late st Contact Info) Description 06/24/2025 4:00 PM EDT Office Visit [facility] [address] [place] [id number] Name, MD Petey [address] [place] [id number] documented as of this encounter Visit Diagnoses Not on filedocumented in this encounter Additional Health Concerns Assessment Noted Time PHQ-9 Depression Total Score: 7 09/04/20 2:09 PM EDT documented as of this encounter Care Teams Bonded Strand Operator Relationship Specialty Start Date End Date Name, MD Petey [address] [place] [id number] PCP - General Family Medicine 01/27/16 Olivia Carmona industry segment specialist 10/25/23 12/28/23 documented as of this encounter
--- OUTSIDE RECORDS SUMMARY | 2025-03-27 13:05 | XMS_ITS | Encounter Summary ---
Author Organization [employer] Address [address] [place] [address] Care Team Providers Care Head Of Global Strategic Partnerships Name Role Phone Name, Petey EWING Primary Care Provider [phone] Reason for Visit * Reason Onset Date Comments Reschedule 11/01/2023 Encounter Details Date Type Department Care Team ([facility] st Contact Info) Description 11/01/2023 Telephone [facility] [address] [place] [address] Name, MD Petey [address] [place] [address] Reschedule Social History Tobacco Use Types Packs/Day Years Used Date Smoking Tobacco: Every Day Cigarettes Alcohol Use Standard Drinks/Week Comments Yes 0 (1 standard drink = 0.6 oz pur e alcohol) socially Depression Answer Date Recorded Patient Health Questionnaire-9 [...] encounter Miscellaneous Notes * Telephone Encounter - Kianna Alfaro - 11/01/2023 4:23 PM EST Tc from pt requesting to r/s 11/01 follow up appointment. Please contact pt at [phone] documented in this encounter Plan of Treatment Upcoming Encounters Date Type Department Care Team (Late st Contact Info) Description 06/24/2025 4:00 PM EDT Office Visit [facility] MED[facility]INE [address] [place] [phone] Name, MD Petey [address] [place] [address] documented as of this encounter Visit Diagnoses Not on filedocumented in this encounter Additional Health Concerns Assessment Noted Time PHQ-9 Depression Total Score: 7 09/04/20 23 2:09 PM EDT documented as of this encounter Care Teams Head Of Global Strategic Partnerships Relationship Specialty Start Date End Date Name, MD Petey [address] [place] [address] PCP - General Family Medicine 01/27/16 Olivia Carmona RN Care Manager 10/25/23 12/28/23 documented as of this encounter
--- OUTSIDE RECORDS SUMMARY | 2025-03-27 13:06 | XMS_ITS | Clinical Summary ---
Author Organization [facility] Address [address] [place] [address] Phone Care Team Providers Care Tag Meter Operator Name Role Phone Name, Petey EWING Primary Care Provider [phone] Allergies Active Allergy Reactions Criticality Noted Date Comments Penicillin G 12/11/2024 Social History Tobacco Use Types Packs/Day Years Used Date Smoking Tobacco: Never Assessed Sex and Gender Information Value Date Recorded Sex Assigned at Not on file Legal Sex Male 8:01 PM EDT Gender Identity Not on file Sexual Orientation Not on file Last Filed Vital Signs Vital Sign Reading Time Taken Comments Blood Pressure - - Pulse - - Temperature - - Respiratory Rate - - Oxygen Saturation - - Inhaled Oxygen Concentration - - Weight 90.7 kg (200 lb) 12/11/2024 1:37 PM EST Height - - Body Mass Index - - Plan of Treatment Health Maintenance Due Date Last Done Comments DTaP,Tdap,and Td Vaccines (1 - Tdap) 1974 Pneumococcal Vaccine: 50+ Ye ars (1 of 2 - PCV) 1974 Zoster Vaccines (1 of 2) 2005 RSV Immunization Adult Patie nts (1 - Risk 60-74 years 1-dose series) 2015 COVID-19 Vaccine ( - 2023-2 5 season) 2024 Abdominal Aortic Aneurysm (A AA) Screen 09/14/2024 Colorectal Cancer Screening: Colonoscopy 09/14/2024 Depression Screening 09/14/2024 09/04/2023 Falls Risk Assessment 09/14/2024 Hepatitis C Screening 09/14/2024 Medicare Annual Wellness Visit 09/14/2024 Social Influencers of Health Screening 09/14/2024 Influenza Vaccine (Season Ended) 2025 Cholesterol Screening (Lipid Panel) 10/20/2028 10/20/2023 HIB Vaccines Aged Out No longer eligi ble based on patient's age to complete this topic HPV Vaccines Aged Out No longer eligi ble based on patient's age to complete this topic Hepatitis A Vaccines Aged Out No long er eligible based on patient's age to complete this topic Hepatitis B Vaccines Aged Out No long er eligible based on patient's age to complete this topic IPV Vaccines Aged Out No longer eligi ble based on patient's age to complete this topic MMR Vaccines Aged Out No longer eligi ble based on patient's age to complete this topic Meningococcal ACWY Vaccine Aged Out N o longer eligible based on patient's age to complete this topic Meningococcal B Vaccine Aged Out No l onger eligible based on patient's age to complete this topic RSV Immunization Patients Un maddison 20 months Aged Out No longer eligible b ased on patient's age to complete this topic Varicella Vaccines Aged Out No longer eligible based on patient's age to complete this topic Insurance MEDICARE MEDICAID - [place] Care Teams Tag Meter Operator Relationship Specialty Start Date End Date Name, MD Petey [address] [place] [address] [facility] - General 09/05/24
--- OUTSIDE RECORDS SUMMARY | 2025-03-27 13:06 | XMS_ITS | Clinical Summary ---
Author Organization [employer] Address [address] [place] [address] 7 [place] [address] Care Team Providers Care Brick Maker Name Role Phone Name, Petey EWING Primary Care Provider [phone] Allergies Active Allergy Reactions Criticality Noted Date Comments Penicillins 12/24/2013 Medications clonazePAM (KlonoPIN) 0.5 MG tablet take 1 tablet by oral route every day at as needed for insomnia or agitation Active dextran 70-hypromellose (artificial tears) 0.1-0.3 % ophthalmic solution one drop in each eye Q 8hrs as needed 2 Active Artificial Tears 0.2-0.2-1 % solution PLACE 1 DROP INTO EACH EYE EVERY 8 HOURS NEEDED 2 Active hydrOXYzine HCl (Atarax) 25 MG tablet TAKE 1 OR 2 TABLETS BY MOUTH AT BEDTIME, NEEDED FOR SLEEP 2 Active hydrOXYzine pamoate (Vistaril) 50 MG capsule Take 1 capsule by mouth in the morning. 0 Active ipratropium-albu terol (Duo-Neb) 0.5-2.5 mg/3 mL nebulizer solution Inhale 3 mL every 6 (six) hours. 0 Active lamoTRIgine (LaMICtal) 150 MG tablet Take 1 tablet by mouth at bed time. 8 Active Lidocaine HCl 3 % cream Apply topically at bed time. 0 Active nicotine (Nicoderm, Step 3) 7 MG/24HR patch Place 1 patch on the skin at bed time. 8 Active nicotine polacrilex (Nicorette) 4 MG gum Take by mouth every 2 (two) hours. 9 Active OLANZapine (ZyPREXA) 10 MG tablet Take 1 tablet by mouth at bed time. 8 Active triamcinolone (Kenalog) 0.1 % cream apply by topical route 2 times every day a thin layer to the affected area(s) for 2 weeks 1 Active simethicone (Mylicon) 125 MG chewable tablet take every 6 hours as needed for gas 8 Active QUEtiapine (SEROquel) 100 MG tablet take 1 tablet by oral route every day; may take additional tablet if needed 8 Active QUEtiapine (SEROquel) 100 MG tablet TAKE ONE (1) TABLET BY MOUTH AT BEDTIME. MAY REPEAT X 1. 2 Active Anoro Ellipta 62.5-25 MCG/ACT aerosol powder 4 Active docusate sodium (Colace) 100 MG capsule TAKE 1 CAPSULE BY MOUTH EVERY DAY 90 capsule 4 Active omeprazole OTC (PriLOSEC OTC) 20 MG EC tabletIndication s:Heartburn TAKE 1 TABLET BY MOUTH EVERY DAY IF NEEDED 90 tablet 4 Active albuterol (Ventolin HFA) 108 (90 Base) MCG/ACT inhaler Inhale 2 puffs by mouth every 4 to 6 hours as needed 18 g 5 4 Active nicotine polacrilex (Commit) 4 MG lozengeIndicatio ns:Smoking DISSOLVE 1 LOZENGE IN THE MOUTH EVERY 2 HOURS IF NEEDED FOR SMOKING CESSATION 100 lozenge 3 4 Active Emollient (CeraVe Daily Moisturizing) lotion Apply thin layer once a day to affected skin 355 mL 2 4 Active atorvastatin (Lipitor) 20 MG tabletIndication s:High cholesterol TAKE 1 TABLET (20 MG) BY MOUTH IN THE EVENING. 28 tablet 3 5 Active alendronate (Fosamax) 70 MG tabletIndication s:Osteoporosis, unspecified osteoporosis type, unspecified pathological fracture presence Take 1 tablet (70 mg) by mouth every 7 (seven) days. 4 tablet 4 5 Active baclofen (Lioresal) 20 MG tablet Take 1 tablet by mouth every 12 (twelve) hours. 1 025 Discontin ued(Thera py completed ) ipratropium (Atrovent HFA) 17 MCG/ACT inhaler INHALE 1 PUFF BT INHALATION ROUTE 3 TIMES EVERY DAY 12.9 g 3 3 025 Discontin ued(Thera py completed ) Active Problems Patient Care Coordination No te Formatting of this note migh t be different from the original. 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 06/25/2015 08/31/2023 Insomnia 04/08/2014 08/31/2023 Anxiety disorder 12/24/2013 08/31/2023 Tobacco dependence 12/24/2013 08/31/2023 Resolved Problems Problem Noted Date Diagnosed Date Resolved Date Cough 08/31/2023 08/31/2023 03/04/2025 Dyspnea 08/31/2023 08/31/2023 03/04/2025 Osteopenia determined by x-ray 08/31/2023 08/31/2023 03/04/2025 Wheezing 08/31/2023 08/31/2023 03/04/2025 Abnormal chest x-ray 02/26/2019 08/31/2023 025 Encounters Date Type Department Care Team Description 03/14/2025 Telephone [facility] [address] [place] [id number] Lesley Velez MA May recalls 03/04/2025 11:00 AM EDT Office Visit [facility] [address] [place] [address] Petey Hood MD Mild chronic obstructive pulmonary disease (CMS/HCC) (Primary Dx); Osteoporosis without current pathological fracture, unspecified osteoporosis type; High cholesterol; Vaccination refused by patient; BPH associated with nocturia 03/04/2025 Travel 02/26/2025 Telephone [facility] [address] [place] [address] Lesley Velez MA chart prep 01/01/2025 Refill [facility] [address] [place] [address] Petey Hood MD Osteoporosis, unspecified osteoporosis type, unspecified pathological fracture presence 12/30/2024 Refill [facility] [address] [place] [address] Petey Hood MD High cholesterol from Last 3 Months Social History Tobacco Use Types Packs/Day Years Used Date Smoking Tobacco: Every Day Cigarettes Tobacco Cessation:Ready to Q uit: Not Asked; Counseling Given: Not Answered Alcohol Use Standard Drinks/Week Comments Yes 0 (1 standard drink = 0.6 oz pur e alcohol) occassionally Depression Answer Date Recorded Patient Health Questionnaire-9 Score 7 09/04/2023 Patient Health Questionnaire-9 Score 7 09/04/2023 Last PHQ-9: Questionnaire Data Not on file 1 Housing Stability Answer Date Recorded What is your housing situation today? I have nayanmario moreno 08/29/[address] you [...] Recorded Patient Health Questionnaire-2 Score 4 09/04/2023 Internet Access Answer Date Recorded Internet Access Q1 Yes 09/02/2024 Internet Access Q2 Not on file 09/02/2024 Sex and Gender Information Value Date Recorded Sex Assigned at Male 09/12/2022 10:23 AM EDT Legal Sex Male 10:23 AM EDT Gender Identity Male 09/12/2022 10:23 AM EDT Sexual Orientation Straight 09/12/2022 10 :23 AM EDT Last Filed Vital Signs Vital Sign Reading Time Taken Comments Blood Pressure 108/71 03/04/2025 10:52 AM EDT Pulse 78 03/04/2025 10:52 AM EDT Temperature 36.7 ??C (98 ??F) 03/04/2025 10: 52 AM EDT Respiratory Rate 14 03/04/2025 10:5 2 AM EDT Oxygen Saturation 96% 03/04/2025 10: 52 AM EDT Inhaled Oxygen Concentration - - Weight 94.7 kg (208 lb 12.8 oz) 025 10:52 AM EDT Height 177.8 cm (5' 10 ) 03/04/2025 10: 52 AM EDT Body Mass Index 29.96 03/04/2025 10:52 AM EDT Plan of Treatment Upcoming Encounters Date Type Department Care Team (Late st Contact Info) Description 06/24/2025 4:00 PM EDT Office Visit [facility] [address] [place] [phone] Name, MD Petey [address] [place] [id number] Health Maintenance Due Date Last Done Comments Anal Pap 1955 CT Colonography 1955 Colonoscopy 1955 Dental Oral Exam 1955 Dental Prophylaxis 1955 Dental X-Ray: Bitewings 1955 Dental X-Ray: Full Mouth 1955 FIT 1955 Sigmoidoscopy 1955 Alcohol/Substance Use Screening 1967 Hepatitis C Screening 1973 DTaP/Tdap/Td Vaccines (1 - Tdap) 1974 Hepatitis A Vaccines (1 of 2 - Risk 2-dose series) 1974 Pneumococcal Vaccine: 50+ Years (1 of 2 - PCV) 1974 Zoster Vaccines (1 of 2) 2005 Hepatitis B Vaccines (1 of 3 - Risk 3-dose series) 2015 RSV Patients and Patients Aged 60 years or older (1 - Risk 60-74 years 1-dose series) 2015 FOBT 06/27/2023 06/27/2022 COVID-19 Vaccine (1 - 2023-2 5 season) 2024 Influenza Vaccine (#1) 2024 Depression Screening 09/04/2024 09/04/2023, 09/04/2023 Colorectal Cancer Screening 06/27/2025 FIT DNA/Cologuard 06/27/2025 06/27/2022 SDOH Screening 09/02/2025 09/02/2024 Tobacco Screening 03/04/2026 03/04/2025 Lipid Panel 10/20/2028 10/20/2023, 06/16/2022 HIB Vaccines Aged Out No longer eligi [...] patient's age to complete this topic Meningococcal Vaccine Aged Out No luis helena eligible based on patient's age to complete this topic RSV under 20 months Aged Out No longe r eligible based on patient's age to complete this topic Rotavirus Vaccines Aged Out No longer eligible based on patient's age to complete this topic Procedures Procedure Name Priority Date/Time Associated Diagnosis Comments LIPID PANEL, STANDARD Routine 10/20/2023 9:32 AM EST PE (physical exam), annual Vaccination refused by patient Pulmonary emphysema, unspecified emphysema type (CMS/HCC) High cholesterol HM FIT DNA/COLOGUARD CANCER SCREENING Routine 06/27/2022 from Last 3 Months or Most Recently Relevant to Health Maintenance Results * Lipid Panel, Standard (10/20/2023 9:32 AM EST) Triglycerides 113 <150 mg/dL [facility] Comment:Desirable Triglyceri de: less than 150 mg/dLBorderline High Triglyceride 150-199 mg/dLHigh Triglyceride: 200-499 mg/dLVery High Triglyceride: greater than or equal to 5OO mg/dL Cholesterol 130 <200 mg/dL [facility] Comment:Desirable Cholestero l: less than 200 mg/dLBorderline High Cholesterol: 200-239 mg/dLHigh Cholesterol: greater than 239 mg/dL LDL Cholesterol Calculated 57 <100 mg/dL [facility] Comment:Desirable LDL: less than 100 mg/dLNear Optimal/Above Optimal LDL: 110- 129 mg/dLBorderline High LDL: 130-159 mg/dLHigh LDL: 160-189 mg/dLVery High LDL: greater than or equal to 190 mg/dL HDL Cholesterol 51 >40 mg/dL [facility] Comment:Desirable HDL: great er than 40 mg/dL Note: This HDL assay may give artificially low results in patients with liver disease. Blood Venous blood specimen / Unknown 10/20/2023 9:32 AM EST 10/20/2023 12:23 PM EST us Petey Hood MD LAB BLOOD ORDERABLES Final Resul t [facility] [address] [place] [address] [phone] * FIT DNA/Cologuard Cancer Screening (06/27/2022) Cologuard Cancer Screen Negative Stool us Petey Hood MD HEALTH MAINTENANCE Final Result from Last 3 Months or Most Recently Relevant to Health Maintenance Insurance [place] [id number] [facility] STANDARD DENTAL-[facility] MEDICAID STAND ADULT Care Teams Brick Maker Relationship Specialty Start Date End Date Name, MD Petey [address] [facility] [place] [address] PCP - General Family Medicine 01/27/16
--- OUTSIDE RECORDS SUMMARY | 2025-03-27 13:06 | XMS_ITS | Encounter Summary ---
Author Organization [employer] Address [address] [place] [address] [address] [place] [address] Care Team Providers Care Pipe Roller Name Role Phone Name, Petey EWING Primary Care Provider [phone] Reason for Visit * Reason Onset Date Comments New Orders 02/13/2023 Encounter Details Date Type Department Care Team ([facility] st Contact Info) Description 02/13/2023 Telephone [facility] [address] [place] [address] Name, MD Petey [address] [place] [address] New Orders Social History Tobacco Use Types Packs/Day Years Used Date Smoking Tobacco: Never Assessed Sex and Gender Information Value Date Recorded Sex Assigned at Male 09/12/2022 10:23 AM EDT Legal Sex Male 10:23 AM EDT Gender Identity Male 09/12/2022 10:23 AM EDT Sexual Orientation Straight 09/12/2022 10 :23 AM EDT documented as of this encounter Miscellaneous Notes * Telephone Encounter - Pritesh Yao - 02/13/2023 3:51 PM EDT Tc from [facility] with facility calling to inform provider that they are renewing his order to manage weekly his medication. [facility] is faxing over new order to be sign. Please if any questions please contact Eliot at [phone] documented in this encounter Plan of Treatment Upcoming Encounters Date Type Department Care Team (Late st Contact Info) Description 06/24/2025 4:00 PM EDT Office Visit [facility] [address] [place] [address] Name, MD Petey [address] [place] [address] documented as of this encounter Visit Diagnoses Not on filedocumented in this encounter Care Teams Pipe Roller Relationship Specialty Start Date End Date Name, MD Petey [address] [place] [id number] PCP - General Family Medicine 01/27/16 Olivia Carmona RN Care Manager 10/25/23 12/28/23 documented as of this encounter
[2025-03-27 13:25] LABS: MANUAL DIFF FLAG NO
[2025-03-27 13:44] LABS: Basophils Absolute Auto 0.1 X10*3/uL (0.0-0.2); Basophils Percent Auto 1.3 % (0-2); Eosinophils Absolute Auto 0.5 X10*3/uL (0.0-0.4); Eosinophils Percent Auto 5.8 % (0-4); Hematocrit 45.2 % (42.0-52.0); Hemoglobin 15.5 g/dl (14.0-18.0); Imm Gran Abs Auto 0.04 X10*3/uL (0.00-0.03); Imm Gran Pct Auto 0.5 % (0.0-0.4); Lymphocytes Absolute Auto 2.6 X10*3/uL (1.2-4.9); Lymphocytes Percent Auto 30.7 % (20-40); Mean Corpuscular HGB Conc 34.3 g/dl (31.0-36.0); Mean Corpuscular Volume 93.4 fL (80.0-98.0); Monocytes Absolute Auto 0.8 X10*3/uL (0.1-1.2); Monocytes Percent Auto 9.2 % (2-11); Neutrophils Absolute Auto 4.4 x10*3/uL (2.0-8.3); Neutrophils Percent Auto 52.5 % (45-73); Platelet Count 227 X10*3/uL (160-400); Red Blood Count 4.84 X10*6/uL (4.60-5.80); Red Cell Distribution Width 13.2 % (11.0-16.0); White Blood Count 8.4 X10*3/uL (4.8-10.8)
[2025-03-27 14:07] LABS: Prostate Specific Antigen 1.03 ng/mL (<0.05-4.0)
[2025-03-27 14:12] LABS: Alanine Aminotransferase 17 U/L (0-40); Albumin Level 3.9 g/dL (3.5-5.0); Alkaline Phosphatase 89 U/L (39-117); Anion Gap 12 (12-20); Aspartate Amino Transferase 25 U/L (5-37); Bilirubin Total 0.7 mg/dL (0.0-1.0); Blood Urea Nitrogen 10 mg/dL (9-16); Calcium 9.4 mg/dL (8.4-10.2); Carbon Dioxide 25 mmol/L (22-29); Chloride 109 mmol/L (96-108); Cholesterol 116 mg/dL (<200); Estimated Glomerular Filt Rate > 60; Glucose Random 94 mg/dL (60-115); HDL Cholesterol 45 mg/dL (>40); LDL Cholesterol Calculated 59 mg/dL (<100); Sodium 142 mmol/L (135-145); Total Protein 6.5 g/dL (6.5-8.0); Triglycerides 63 mg/dL (<150)
[2025-03-27 14:18] LABS: Vitamin D 25-OH Total 47.1 ng/mL (>30)
== END 2025-03-27 12:10 | disposition home or self-care (01) ==
LOC: HO.HHCL 12:09
PROVIDERS: Visit Provider Internal Medicine Geriatric Medicine
DX: E78.00 Pure hypercholesterolemia, unspecified (principal); M81.0 Age-related osteoporosis without current pathological fracture; J44.9 Chronic obstructive pulmonary disease, unspecified; N40.1 Benign prostatic hyperplasia with lower urinary tract symptoms; R35.1 Nocturia; Z12.5 Encounter for screening for malignant neoplasm of prostate
CPT/HCPCS: 36415; 80053; 80061; 82306; 84153; 85025

== ENCOUNTER 2025-04-13 09:50 | Emergency (ER) | payer MEDICARE, MEDICAID, SELFPAY ==
[2025-04-13] VITALS (15 sets, daily range): BP systolic 90–146; BP diastolic 54–71; PULSE 62–96; RESP 12–26; TEMP 35.7–37; O2SAT 88–97; BMI 30.8
--- NOTE | ~2025-04-13 | XR_ITS ---
CLINICAL HISTORY: dyspnea 1 view chest Comparison: None Findings: Cardiac and mediastinal contours are normal. There is interstitial prominence with scattered peribronchial thickening. No focal consolidation. No effusion. No pneumothorax. No acute osseous finding. Impression: There is interstitial prominence with scattered peribronchial thickening. No focal consolidation. This document has been electronically signed by: Orlando Langley MD on 04/13/2025 11:17:42
--- NOTE | ~2025-04-13 | CT_ITS ---
CLINICAL HISTORY: AMS CT head without contrast Comparison: None Findings: No evidence of acute territorial infarct. There is mild patchy low density in the periventricular and subcortical white matter. Mild volume loss is noted. No hydrocephalus. No hemorrhage, mass effect, mass lesion or midline shift. No abnormal extra-axial fluid. No calvarial fracture. Left maxillary retention cyst. Impression: No evidence of an acute intracranial process. Chronic changes as detailed. This document has been electronically signed by: Orlando Langley MD on 04/13/2025 11:21:13
--- NOTE | 2025-04-13 10:11 | ECG_ITS ---
Test Reason : AMS Blood Pressure : */* mmHG Vent. Rate : 90 BPM Atrial Rate : 90 BPM P-R Int : 146 ms QRS Dur : 126 ms QT Int : 386 ms P-R-T Axes : 58 -62 15 degrees QTcB Int : 472 ms Normal sinus rhythm Right bundle branch block Left anterior fascicular block Bifascicular block Abnormal ECG When compared with ECG of 22-Apr-2021 05:22, Questionable change in initial forces of Septal leads Referred By: Zahra Aquino Electronically Signed By: BEATA ROSENBERG
--- NOTE | 2025-04-13 10:12 | ED_ITS ---
HPI - Weakness General Chief complaint: General Medical Stated complaint: GEN WEAKNESS/88% ON RA ON 2LPM Time Seen by Provider: 04/13/25 09:55 Source: patient and EMS Mode of arrival: EMS Limitations: other (poor historian) History of Present Illness ED Provider: YAMILE HPI Narrative: 69 yo male wtih PMH of COPD not on home O2, osteopenia, pulm emphysema, bipolar d/o, anxiety on PRN clonazepam who called 911 due to feeling weak and short of breath this AM. He states he was very anxious I took too much medications He admits to clonazepam use but then cannot tell us exactly when he took it or how much. He has slurred speech as well and states this is new. He denies CP, cough, fevers, n/v/d, rash, falls or headstrike. He denies any other ingestions and states no SI was just anxious. MD Complaint: generalized weakness Onset (ago): day(s) (unclear but ?today) Duration: constant Location: generalized Migration: none Severity: mild Relieving factors: none Exacerbating factors: movement Context: other (too much clonazepam) Associated symptoms: denies other symptoms Related Data Home Medications ?Medication ?Instructions ?Recorded ?Confirmed albuterol sulfate 90 mcg/actuation inhalation 10/11/23 aerosol inhaler (Ventolin HFA) alendronate 70 mg tablet 70 mg PO QWEEK 10/11/23 atorvastatin 20 mg tablet 20 mg PO DAILY 10/11/23 clonazepam 0.5 mg tablet 0.5 mg PO DAILY PRN 10/11/23 hydroxyzine HCl 25 mg tablet 25 mg PO BID 10/11/23 lamotrigine 150 mg tablet 150 mg PO DAILY 10/11/23 olanzapine 10 mg tablet 10 mg PO BEDTIME 10/11/23 quetiapine 100 mg tablet mg PO 10/11/23 Previous Rx's ?Medication ?Instructions ?Recorded Anoro Ellipta 62.5 mcg-25 1 inh inhalation DAILY 30 days #1 11/20/24 mcg/actuation powder for ea inhalation (umeclidinium-vilanterol) omeprazole 40 mg capsule,delayed 40 mg PO BID 30 days #60 caps 12/31/24 release Allergies Allergy/AdvReac Type Severity Reaction Status Date / Time Penicillins Allergy Unknown Facial Verified 04/13/25 10:15 flushing and red face monosodium glutamate AdvReac Unknown Funny Verified 04/13/25 10:15 taste in mouth Review of Systems 2 Review of Systems: ROS unable to be obtained due to altered mental status PMFSH Past Medical History Medical History (Updated 04/13/25 @ 15:07 by Zahra Aquino DO) Nicotine dependence, cigarettes, uncomplicated History of small bowel obstruction Bipolar disorder with psychotic features Sensorineural hearing loss (SNHL) of both ears GERD (gastroesophageal reflux disease) Osteopenia Surgical History (Updated 09/23/22 @ 14:03 by Marichuy Metcalf PA-C) History of laparotomy Social History Social History (Updated 10/08/24 @ 13:35 by ANGELITA Mejia) Patient Tobacco Use Status: Current everyday Tobacco user Tobacco use type: Cigarette Cigarette Packs Per Day: 0.5 Cigarettes Per Day: 15 Smoked in Last 30 Days: No Use of substances other than those prescribed or required for medical reasons: No Advance Directives: No Advance Directives Information Provided: Yes Do you have a plan to hurt others: No Plan Physical Exam 2 Vital Signs: Vital Signs: Last Vital Signs Temp 98.1 F 04/14/25 09:22 Pulse 81 04/14/25 09:22 Resp 21 H 04/14/25 09:22 BP 111/59 L 04/14/25 09:22 Pulse Ox 98 04/14/25 09:22 O2 Del Method Room Air 04/14/25 09:22 BMI result Body Mass Index 30.8 Appearance:Lethargic Oriented X3 but slow to respond No acute distress. Eyes: Pupils equal, round and reactive to light. 3mm ENT: Pharynx normal. Neck: Normal inspection. Neck supple. CVS: Normal heart rate and rhythm. Pulses normal. Respiratory: No respiratory distress. Breath sounds diminished. Abdomen: Soft and nontender. Skin: Skin warm and dry. Normal skin color. Normal skin turgor. Extremities: No lower extremity edema. Neuro: Oriented X 3. No motor deficit. No sensory deficit. CN2-12 intact, slow to respond, no clonus, no hyperreflexia, he has slurred speech Course Course Course Narrative: BP soft due to medications and not infection or severe sepsis Reevaluation(s) Reevaluation #1: I took over care of this patient at approximately 16:15 patient has been observed and worked up for metabolic or toxicologic encephalopathy with hypoxia on arrival. Later it acknowledged inadvertent overdose of benzodiazepine due to panic attack. Surprisingly his urine does not show benzodiazepines. Remains sleepy no focal neurologic deficits reported. CT and broad lab analysis has been sent. Pablo Dasilva MD Reevaluation #2: Time: 08:35 Date: 04/14/25 Provider: YENNY Hebert Patient in physician observation for case management needs. No acute events reported overnight.? No current issues or complaints. VS stable. Patient is pending PT/CM eval. Will continue to monitor. Time: 08:55 Date: 04/14/25 Provider: YENNY Hebert Physician observation ended at 0855. Patient was evaluated by physical therapy. He is noted to ambulate without assistive device with slow larry, steady gait. They are recommending discharge home with outpatient services. I did speak with case management who is arranging VNA services at home for physical therapy. He has been cleared medically and by PT at this time. He is ambulating with steady gait, tolerating PO. there are no appreciable neuro deficits at this time. I have reviewed all workup results and do not appreciate any significant abnormalities requiring admission. he is stable for discharge at this time. he will be transported home via [facility] shuttle. Medications Administered Discontinued Medications Generic Name Dose Route Start Last Admin Trade Name Freq PRN Reason Stop Dose Admin Lactated Ringer's 1,000 mls @ 999 mls/hr 04/13/25 12:29 04/13/25 13:40 Lr IV 04/13/25 13:29 Infused .Q1H1M ONE Infusion Lactated Ringer's 1,000 mls @ 80 mls/hr 04/13/25 15:00 04/14/25 01:22 Lr IVCONT Infused .[id number] ROSELYN Infusion Medical Decision Making Medical Decision Making MDM Narrative: 69 yo male wtih PMH of COPD not on home O2, osteopenia, pulm emphysema, bipolar d/o, anxiety on PRN clonazepam now here with sedation and feeling weak and tired after taking too much clonazepam . He is really a poor historian overall and at this time given his presentation I am going to order basic lab, infl markers, CT head, CXR, drug screen and vbg Differential Diagnosis Differential Diagnoses: The differential diagnosis associated with the presentation includes overdose, CO2 retention, viral syndrome Admission/Observation Consideration of admission/observation: Escalation of care including admission/observation considered physician observation started at 306pm patient is still sedated from his clonazepam signed out to oncoming provider 4pm Lab Data MDM Lab Attestation statement: I reviewed the patient's lab results. currently labs reassuring at this time I don't have a real source of his presentation CT head and CXR negative, UA negative, Crp only 0.7 which is pretty underwhelming. 04/13/25 10:53 04/13/25 10:53 Labs: Lab Results 04/13/25 04/13/25 04/13/25 Range/Units 10:53 10:54 10:59 WBC 11.5 H (4.8-10.8) X10*3/uL RBC 5.27 (4.60-5.80) X10*6/uL Hgb 17.0 (14.0-18.0) g/dl Hct 47.7 (42.0-52.0) % MCV 90.5 (80.0-98.0) fL MCH 32.3 (27.0-33.0) pg MCHC 35.6 (31.0-36.0) g/dl RDW 12.8 (11.0-16.0) % Plt Count 239 (160-400) X10*3/uL MPV 9.2 L (9.4-12.4) fL Immature Gran % (Auto) 0.6 H (0.0-0.4) % Neut % (Auto) 77.6 H (45-73) % Lymph % (Auto) 11.6 L (20-40) % [place] % (Auto) 7.7 (2-11) % Eos % (Auto) 1.7 (0-4) % Baso % (Auto) 0.8 (0-2) % Lymph # (Auto) 1.3 (1.2-4.9) X10*3/uL [place] # (Auto) 0.9 (0.1-1.2) X10*3/uL Eos # (Auto) 0.2 (0.0-0.4) X10*3/uL Baso # (Auto) 0.1 (0.0-0.2) X10*3/uL Abs Immat Gran (auto) 0.07 H (0.00-0.03) X10*3/uL Absolute Neuts (auto) 8.9 H (2.0-8.3) x10*3/uL Absolute Nucleated RBC 0.000 (0.0-0.012) X10*3/uL Nucleated RBC % (auto) 0.0 (0.0-0.2) /100WBC VBG pH 7.47 H (7.32-7.43) VBG pCO2 30 mmHg VBG pO2 37 mmHg VBG HCO3 22 (22-26) mmol/L VBG O2 Saturation 62.0 % VBG Base Excess 0.2 mmol/L Sodium 136 (135-145) mmol/L Potassium 4.1 (3.3-5.1) mmol/L Chloride 104 (96-108) mmol/L Carbon Dioxide 23 (22-29) mmol/L Anion Gap 13 (12-20) BUN 7 L (9-16) mg/dL Creatinine 0.86 (0.5-1.4) mg/dL Estim Creat Clear Calc 92.0 Estimated GFR > 60 Random Glucose 109 (60-115) mg/dL Calcium 10.3 H D (8.4-10.2) mg/dL Magnesium 2.3 (1.6-2.6) mg/dL Total Bilirubin 1.4 H (0.0-1.0) mg/dL Direct Bilirubin 0.5 (0.0-0.5) mg/dL AST 59 H (5-37) U/L ALT 26 (0-40) U/L Alkaline Phosphatase 108 (39-117) U/L Ammonia (13-55) umol/L Troponin I High Sens 2.8 (<3.5-35.0) ng/L C-Reactive Protein 0.71 H (< or = 0.50) mg/dL B-Natriuretic Peptide 21 (<100) pg/mL Total Protein 7.5 (6.5-8.0) g/dL Albumin 4.7 (3.5-5.0) g/dL Lipase 10 (8-78) U/L TSH 0.20 L (0.32-4.0) uIU/mL Free T4 1.20 (0.71-1.85) ng/dL Urine Color Yellow Urine Appearance Clear Urine pH 7.0 (5.0-9.0) Ur Specific [place] <= 1.005 (1.005-1.025) Urine Protein Negative (Neg-Trace) mg/dL Urine Glucose (UA) Negative (Negative) mg/dL Urine Ketones Negative (Negative) mg/dL Urine Blood Negative (Negative) Urine Nitrite Negative (Negative) Ur Leukocyte Esterase Negative (Negative) Salicylates < 5.0 L (15-30) mg/dL Urine Opiates Screen Not Detected (Not Detect) Ur Buprenorphine Scrn Not Detected (Not Detect) ng/mL Ur Oxycodone Screen Not Detected (Not Detect) ng/mL Urine Methadone Screen Not Detected (Not Detect) ng/mL Urine Fentanyl Screen Not Detected (Not Detect) Acetaminophen < 3 (<30) mcg/mL Ur Barbiturates Screen Not Detected (Not Detect) Ur Phencyclidine Scrn Not Detected (Not Detect) Ur Amphetamines Screen Not Detected (Not Detect) U Benzodiazepines Scrn Not Detected (Not Detect) Urine Cocaine Screen Not Detected (Not Detect) U Marijuana (THC) Screen Not Detected (Not Detect) Ethyl Alcohol < 10 mg/dL Influenza Type A (PCR) NEGATIVE (Negative) Influenza Type B (PCR) NEGATIVE (Negative) RSV RNA Qual (PCR) NEGATIVE (Negative) SARS-CoV-2 RNA (RT-PCR) NEGATIVE (Negative) 04/13/25 Range/Units 12:46 WBC (4.8-10.8) X10*3/uL RBC (4.60-5.80) X10*6/uL Hgb (14.0-18.0) g/dl Hct (42.0-52.0) % MCV (80.0-98.0) fL MCH (27.0-33.0) pg MCHC (31.0-36.0) g/dl RDW (11.0-16.0) % Plt Count (160-400) X10*3/uL MPV (9.4-12.4) fL Immature Gran % (Auto) (0.0-0.4) % Neut % (Auto) (45-73) % Lymph % (Auto) (20-40) % [place] % (Auto) (2-11) % Eos % (Auto) (0-4) % Baso % (Auto) (0-2) % Lymph # (Auto) (1.2-4.9) X10*3/uL [place] # (Auto) (0.1-1.2) X10*3/uL Eos # (Auto) (0.0-0.4) X10*3/uL Baso # (Auto) (0.0-0.2) X10*3/uL Abs Immat Gran (auto) (0.00-0.03) X10*3/uL Absolute Neuts (auto) (2.0-8.3) x10*3/uL Absolute Nucleated RBC (0.0-0.012) X10*3/uL Nucleated RBC % (auto) (0.0-0.2) /100WBC VBG pH (7.32-7.43) VBG pCO2 mmHg VBG pO2 mmHg VBG HCO3 (22-26) mmol/L VBG O2 Saturation % VBG Base Excess mmol/L Sodium (135-145) mmol/L Potassium (3.3-5.1) mmol/L Chloride (96-108) mmol/L Carbon Dioxide (22-29) mmol/L Anion Gap (12-20) BUN (9-16) mg/dL Creatinine (0.5-1.4) mg/dL Estim Creat Clear Calc Estimated GFR Random Glucose (60-115) mg/dL Calcium (8.4-10.2) mg/dL Magnesium (1.6-2.6) mg/dL Total Bilirubin (0.0-1.0) mg/dL Direct Bilirubin (0.0-0.5) mg/dL AST (5-37) U/L ALT (0-40) U/L Alkaline Phosphatase (39-117) U/L Ammonia 39 (13-55) umol/L Troponin I High Sens (<3.5-35.0) ng/L C-Reactive Protein (< or = 0.50) mg/dL B-Natriuretic Peptide (<100) pg/mL Total Protein (6.5-8.0) g/dL Albumin (3.5-5.0) g/dL Lipase (8-78) U/L TSH (0.32-4.0) uIU/mL Free T4 (0.71-1.85) ng/dL Urine Color Urine Appearance Urine pH (5.0-9.0) Ur Specific [place] (1.005-1.025) Urine Protein (Neg-Trace) mg/dL Urine Glucose (UA) (Negative) mg/dL Urine Ketones (Negative) mg/dL Urine Blood (Negative) Urine Nitrite (Negative) Ur Leukocyte Esterase (Negative) Salicylates (15-30) mg/dL Urine Opiates Screen (Not Detect) Ur Buprenorphine Scrn (Not Detect) ng/mL Ur Oxycodone Screen (Not Detect) ng/mL Urine Methadone Screen (Not Detect) ng/mL Urine Fentanyl Screen (Not Detect) Acetaminophen (<30) mcg/mL Ur Barbiturates Screen (Not Detect) Ur Phencyclidine Scrn (Not Detect) Ur Amphetamines Screen (Not Detect) U Benzodiazepines Scrn (Not Detect) Urine Cocaine Screen (Not Detect) U Marijuana (THC) Screen (Not Detect) Ethyl Alcohol mg/dL Influenza Type A (PCR) (Negative) Influenza Type B (PCR) (Negative) RSV RNA Qual (PCR) (Negative) SARS-CoV-2 RNA (RT-PCR) (Negative) Independent Interpretation I performed an independent interpretation of an: EKG, Plain X-Ray and CT Scan Interpretation: Rate: 90 Rhythm: NSR [place]: left Normal P waves. Normal KAMLESH. RBBB ST T wave : inveted t waves V1 and V3, no GINA qTC: 472 prior studies: no sig change from priors The study has been interpreted contemporaneously by me. . Radiology Impression Discussion of test interpretation with radiology: I have reviewed the radiologist's reading. Discharge Plan Discharge Clinical Impression: Benzodiazepine misuse Patient Disposition: Home, Self-Care Instructions: Anxiolysis in Adults (ED) Additional Instructions: Your workup in the ED is reassuring. You were evaluated by physical therapy. They are recommending home services for physical therapy. Case management is arranging VNA services for you. Please follow up with all outpatient providers. Make sure you are taking your home medications appropriately. Return with any new or worsening symptoms. In the case of an emergency call 911. Prescriptions: No Action Anoro Ellipta 62.5-25 mcg/actuation blister with device 1 inh inhalation DAILY 30 Days Qty: 1 4RF omeprazole 40 mg capsule,delayed release(DR/EC) 40 mg PO BID 30 Days Qty: 60 5RF clonazepam 0.5 mg tablet 0.5 mg PO DAILY PRN lamotrigine 150 mg tablet 150 mg PO DAILY hydroxyzine HCl 25 mg tablet 25 mg PO BID quetiapine 100 mg tablet PO olanzapine 10 mg tablet 10 mg PO BEDTIME alendronate 70 mg tablet 70 mg PO QWEEK atorvastatin 20 mg tablet 20 mg PO DAILY albuterol sulfate [Ventolin HFA] 90 mcg/actuation HFA aerosol inhaler inhalation Referrals: Carina Tomas [Outside] Physician,Unknown J [Primary Care Provider] - Interventions: ED Discharge Assessment Last Done: 04/14/25 09:22 Discharge Date/Time: 04/14/25 09:22 Print Language: Slovenian
[2025-04-13 11:00] LABS: MANUAL DIFF FLAG NO
[2025-04-13 11:02] LABS: Basophils Absolute Auto 0.1 X10*3/uL (0.0-0.2); Basophils Percent Auto 0.8 % (0-2); Eosinophils Absolute Auto 0.2 X10*3/uL (0.0-0.4); Eosinophils Percent Auto 1.7 % (0-4); Hematocrit 47.7 % (42.0-52.0); Imm Gran Abs Auto 0.07 X10*3/uL (0.00-0.03); Imm Gran Pct Auto 0.6 % (0.0-0.4); Lymphocytes Absolute Auto 1.3 X10*3/uL (1.2-4.9); Lymphocytes Percent Auto 11.6 % (20-40); Mean Corpuscular HGB Conc 35.6 g/dl (31.0-36.0); Mean Corpuscular Hemoglobin 32.3 pg (27.0-33.0); Mean Corpuscular Volume 90.5 fL (80.0-98.0); Mean Platelet Volume 9.2 fL (9.4-12.4); Monocytes Absolute Auto 0.9 X10*3/uL (0.1-1.2); Monocytes Percent Auto 7.7 % (2-11); Neutrophils Absolute Auto 8.9 x10*3/uL (2.0-8.3); Neutrophils Percent Auto 77.6 % (45-73); Platelet Count 239 X10*3/uL (160-400); Red Blood Count 5.27 X10*6/uL (4.60-5.80); Red Cell Distribution Width 12.8 % (11.0-16.0); White Blood Count 11.5 X10*3/uL (4.8-10.8)
[2025-04-13 11:03] LABS: Appearance Urine Clear; Color Urine Yellow; Glucose Urine UA Negative (Negative); Leukocyte Esterase Urine Negative (Negative); Nitrite Urine Negative (Negative); Specific Gravity - Urine <= 1.005 (1.005-1.025); Urine Blood Negative (Negative); Urine Ketones Negative (Negative); Urine Protein Negative (Neg-Trace)
[2025-04-13 11:08] LABS: Venous Blood Gas Refer to POC result
[2025-04-13 11:13] LABS: Amphetamine Screen Urine Not Detected (Not Detect); Barbiturates, Urine Not Detected (Not Detect); Benzodiazepines Screen Urine Not Detected (Not Detect); Buprenorphine Scr Not Detected (Not Detect); Cannabinoid Screen Urine Not Detected (Not Detect); Cocaine Screen Urine Not Detected (Not Detect); Fentanyl, urine Not Detected (Not Detect); Methadone Screen, Urine Not Detected (Not Detect); Opiate Screen Urine Not Detected (Not Detect); Oxycodone Screen Urine Not Detected (Not Detect); Phencyclidine Screen Urine Not Detected (Not Detect)
[2025-04-13 11:17] LABS: VBG Base Excess 0.2 mmol/L; VBG HCO3 22 mmol/L (22-26); VBG pCO2 30 mmHg; VBG pH 7.47 (7.32-7.43); VBG pO2 37 mmHg
[2025-04-13 11:26] LABS: Acetaminophen LAB < 3 mcg/mL (<30); Alanine Aminotransferase 26 U/L (0-40); Albumin Level 4.7 g/dL (3.5-5.0); Alkaline Phosphatase 108 U/L (39-117); Anion Gap 13 (12-20); Aspartate Amino Transferase 59 U/L (5-37); Bilirubin Direct 0.5 mg/dL (0.0-0.5); Bilirubin Total 1.4 mg/dL (0.0-1.0); Blood Urea Nitrogen 7 mg/dL (9-16); C Reactive Protein 0.71 mg/dL (< or = 0.50); Calcium 10.3 mg/dL (8.4-10.2); Carbon Dioxide 23 mmol/L (22-29); Chloride 104 mmol/L (96-108); Estimated Glomerular Filt Rate > 60; Ethanol < 10 mg/dL; Glucose Random 109 mg/dL (60-115); Lipase 10 U/L (8-78); Magnesium 2.3 mg/dL (1.6-2.6); Potassium 4.1 mmol/L (3.3-5.1); Salicylate < 5.0 mg/dL (15-30); Sodium 136 mmol/L (135-145); Total Protein 7.5 g/dL (6.5-8.0)
[2025-04-13 11:31] LABS: B Type Natriuretic Peptide 21 pg/mL (<100)
--- NOTE | 2025-04-13 11:33 | PC.NURSE ---
Pt biba from home for feeling weak and short of breath this morning. Pt stated he felt normal last night before bed and started with these symptoms in the morning. Pt speech mumbled, unable to get definitive information. Pt stated he took too many medications , approx three 3mg Klonopins. Per pt, denies SI/intentional overdose- was feeling more anxious than usual so he took extra. Per ems, pt was found to be 89% on RA, placed on 2L O2 NC with good effect- O2 sat up to high 90s. Pt lethargic, arousable to verbal stimuli, oriented x3- slow to respond/mumbled speech, pupils equal/reactive to light, no motor/sensory deficits, respirations even and unlabored, no use of accessory muscles/tripoding, pt taken off 2L O2, maintaining O2 sat >92% on RA- no desats on monitor, maintaining own airway upright in bed- no signs of aspiration, pt endorsing mild sob- RR elevated 23-28, appears in no distress, speaking full sentences, nsr on professional engineer, HR 70s, denies cp/palpitations/dizziness. BP cycling q10 and continuous O2 probe placed to monitor pt. Pt difficult stick-22g IV placed R hand, ekg/labs/urine obtained and sent. Emptied urinal 500mls. Pt resting comfortably at this time, call dawson within reach, all needs met at this time.
[2025-04-13 11:34] LABS: Troponin-I High Sensitivity 2.8 ng/L (<3.5-35.0)
[2025-04-13 11:48] LABS: Influenza A PCR NEGATIVE (Negative); Influenza B PCR NEGATIVE (Negative); Resp Syncy Virus RNA Qual PCR NEGATIVE (Negative); SARS COV2 PCR INHOUSE NEGATIVE (Negative)
--- NOTE | 2025-04-13 12:17 | PC.NURSE ---
Pt pressures noted to be soft 90s/50s, MD Aquino made aware. Verbal order for 1L LR, hung and scanned into MAR. Pt remains lethargic, easily arousable to verbal stimuli. Vitals updated in worklist.
[2025-04-13] MEDS: Lactated Ringers 1,000 ML 999 ML IV (12:33)
--- NOTE | 2025-04-13 12:54 | PC.NURSE ---
Pressures noted to increase after LR infusing- 100s/50s. MD Aquino aware. Pt remains lethargic, in upright position, maintaining own airway/O2 sat on RA mid 90s. Call dawson within reach, all needs met at this time.
[2025-04-13 13:04] LABS: Ammonia 39 umol/L (13-55)
[2025-04-13] MEDS: Lactated Ringers 1,000 ML 80 ML IVCONT (15:34)
--- NOTE | 2025-04-13 16:35 | PC.NURSE ---
Pt remains lethargic, arousable to verbal stimuli, speech improved- clear and appropriate, neuros intact. Vitals updated in worklist. Pt incontinent of urine- cleaned up and repositioned, all new linens placed. LR infusing per MAR. Pt able to make needs known, call dawson within reach, all needs met at this time.
--- NOTE | 2025-04-13 18:56 | PC.NURSE ---
assumed care of patient at this time. Pt resting in no apparent distress bed locked in lowest position and call dawson within reach
[2025-04-14 00:16] VITALS: BP 107/53; PULSE 66; RESP 17; TEMP 36.6; O2SAT 93
--- NOTE | 2025-04-14 00:47 | MHC.EDTECH ---
This Pct assumed Care of Patient at 2300 ,Patient belongings list done ,Patient awake asked for apple juice ,drank 240 ml ,all safety measure in Place Plan of Care continue .
--- NOTE | 2025-04-14 01:19 | PC.NURSE ---
Per provider asked for ambulation trail, patient able to get out of bed with minimal assistance felt dizzy upon standing but subsided after a few second, after standing only able to talk 5 steps before being to dizzy to continue. Provider notified and plan for PT/CM. Per provider verbal order to D/C IV fluids due to patient tolerating PO at this time
--- NOTE | 2025-04-14 01:58 | MHC.EDTECH ---
Patient had Ham sandwich and apple juice for snack .
[2025-04-14 03:53] VITALS: BP 103/52; PULSE 73; RESP 15; TEMP 36.8; O2SAT 94
--- NOTE | 2025-04-14 03:57 | MHC.EDTECH ---
0400 rounding done ,Pt sleeping ,vitals taken ,warm blanket given ,all safety measure in Place .Call dawson within Pt reach .
[2025-04-14 06:26] VITALS: BP 115/54; PULSE 66; RESP 20; TEMP 36.7; O2SAT 93
--- NOTE | 2025-04-14 06:27 | MHC.EDTECH ---
0600 rounding done ,vitals taken ,Patient awake , slept most of the night ,550 ML URINE EMPTY FROM URINAL ,Call dawson within Pt reach .
--- NOTE | 2025-04-14 08:47 | MHC.CM.ED ---
Received case management consult from Dr Dasilva overnight. Patient came to the ER due to weakness. Work up essentially negative. Physical therapy eval completed. Home with services is recommended. Met with patient in regards to discharge planning. Patient lives alone, ambulates independently and had no services prior to coming to the ER. PCP is [facility]. Patient believes he completed a HCP at [facility]. Patient agreeable to VNA referral being broadcasted for availability. Patient will use [facility] shuttle to d/c home. Whitney REYES and Alice RAMON aware. Continue to monitor for d/c needs.
[2025-04-14 09:05] VITALS: BP 111/59; PULSE 81; RESP 21; TEMP 36.7; O2SAT 98
[2025-04-14 09:22] VITALS: BP 111/59; PULSE 81; RESP 21; TEMP 36.7; O2SAT 98
== END 2025-04-14 09:22 | disposition home or self-care (01) ==
PROVIDERS: Emergency Medicine; Emergency Provider Emergency Medicine; PCP Internal Medicine Geriatric Medicine
DX: F13.90 Sedative, hypnotic, or anxiolytic use, unspecified, uncomplicated (principal); R53.1 Weakness; R06.02 Shortness of breath; R47.81 Slurred speech; J44.9 Chronic obstructive pulmonary disease, unspecified; K21.9 Gastro-esophageal reflux disease without esophagitis; Z03.818 Encounter for observation for suspected exposure to other biological agents ruled out; Z79.899 Other long term (current) drug therapy
CPT/HCPCS: 0241U; 36415; 70450; 71045; 80048; 80076; 80143; 80179; 80307; 81003; 82140; 82803; 83690; 83735; 83880; 84439; 84443; 84484; 85025; 86140; 93005; 96360; 96361; 97161; 99285; J7120

== ENCOUNTER → 2025-04-13 10:11 | Outpatient (BNV) | payer MEDICARE, MEDICAID, SELFPAY | PROVIDERS: Emergency Provider Emergency Medicine; Visit Provider Radiology Vascular & Interventional Radiology | DX: R41.82 Altered mental status, unspecified (principal); R06.00 Dyspnea, unspecified | CPT/HCPCS: 70450; 71045 ==

== ENCOUNTER → 2025-04-13 10:11 | Outpatient (BNV) | payer MEDICARE, MEDICAID, SELFPAY | PROVIDERS: Emergency Provider Emergency Medicine; Visit Provider Internal Medicine | DX: I45.2 Bifascicular block (principal) | CPT/HCPCS: 93010 ==

== ENCOUNTER 2025-04-23 00:27 | Emergency (ER) | payer MEDICARE, MEDICAID, SELFPAY ==
[2025-04-23 00:34] VITALS: BP 131/68; PULSE 118; RESP 19; TEMP 36.4; O2SAT 94; BMI 28.7
--- NOTE | 2025-04-23 02:13 | ED_ITS ---
HPI - General Adult General Chief complaint: General Medical Stated complaint: disoriented Time Seen by Provider: 04/23/25 02:13 History of Present Illness ED Provider: Maureen CAMPOS narrative: The patient is a 69-year-old male who came to the hospital because he has not been feeling well. He feels that he is not happy in his living situation. He does not really like the apartment complex in which he is living. He took an Uber taxi to come to the [facility]. He says that he feels that he is more prone to losing things recently. He says that he feels somewhat depressed and does not want to harm himself. He has hope he can get into respite facility. He says he has been in respite before and it has been helpful. The patient was seen here 10 days ago after apparently taking an excess of benzodiazepines. He had a negative head CT at that visit. He says that before he came to the hospital [facility] he took his regular dose of clonazepam, hydroxyzine, and quetiapine. He denies fever, sweats, chills. He denies cough or sputum. He denies abdominal pain, nausea, vomiting. He denies chest pain or pleuritic pain. Related Data Home Medications ?Medication ?Instructions ?Recorded ?Confirmed albuterol sulfate 90 mcg/actuation inhalation 10/11/23 aerosol inhaler (Ventolin HFA) alendronate 70 mg tablet 70 mg PO QWEEK 10/11/23 atorvastatin 20 mg tablet 20 mg PO DAILY 10/11/23 clonazepam 0.5 mg tablet 0.5 mg PO DAILY PRN 10/11/23 hydroxyzine HCl 25 mg tablet 25 mg PO BID 10/11/23 lamotrigine 150 mg tablet 150 mg PO DAILY 10/11/23 olanzapine 10 mg tablet 10 mg PO BEDTIME 10/11/23 quetiapine 100 mg tablet mg PO 10/11/23 Previous Rx's ?Medication ?Instructions ?Recorded Anoro Ellipta 62.5 mcg-25 1 inh inhalation DAILY 30 days #1 11/20/24 mcg/actuation powder for ea inhalation (umeclidinium-vilanterol) omeprazole 40 mg capsule,delayed 40 mg PO BID 30 days #60 caps 12/31/24 release Allergies Allergy/AdvReac Type Severity Reaction Status Date / Time Penicillins Allergy Unknown Facial Verified 04/23/25 00:35 flushing and red face monosodium glutamate AdvReac Unknown Funny Verified 04/23/25 00:35 taste in mouth Review of Systems 2 Review of Systems: Yes all other systems are reviewed and are negative PMFSH Past Medical History Medical History (Updated 04/23/25 @ 09:40 by Segundo Reddy MD) Nicotine dependence, cigarettes, uncomplicated History of small bowel obstruction Bipolar disorder with psychotic features Sensorineural hearing loss (SNHL) of both ears GERD (gastroesophageal reflux disease) Osteopenia Surgical History (Updated 09/23/22 @ 14:03 by Marichuy Metcalf PA-C) History of laparotomy Social History Social History (Updated 10/08/24 @ 13:35 by ANGELITA Mejia) Patient Tobacco Use Status: Current everyday Tobacco user Tobacco use type: Cigarette Cigarette Packs Per Day: 0.5 Cigarettes Per Day: 15 Advance Directives: No Advance Directives Information Provided: Yes Do you have a plan to hurt others: No Plan Physical Exam ED Vital Signs: Vital Signs - 24 hr 04/23/25 00:34 04/23/25 05:42 04/23/25 05:46 Temperature 97.5 F 97.5 F Pulse Rate 118 H 69 Respiratory Rate 19 12 Blood Pressure 131/68 92/56 L Pulse Oximetry 94 93 Oxygen Delivery Method Room Air Room Air 04/23/25 09:04 Temperature 7.6 F L Pulse Rate 67 Respiratory Rate 17 Blood Pressure 96/62 Pulse Oximetry 97 Oxygen Delivery Method Room Air BMI result Body Mass Index 28.7 Const Other: The patient is a reasonably well-groomed 69-year-old male who seemed sleepy but arousable. He did not seem in any distress. HENMT Other: Face is symmetrical. Mucous membranes were moist. Eyes General: appearance normal, both eyes and all related structures Neck Neck: Yes normal visual inspection, Yes full ROM and Yes no JVD Resp Effort & Inspection: normal respiratory effort Auscultation: clear to auscultation bilaterally Cardio Rate: regular rate Rhythm: regular rhythm Heart sounds: S1 normal heart sound present and S2 normal heart sound present GI Other: Abdomen is soft and nontender Skin Other: Skin is dry and unremarkable Neuro Other: The patient is drowsy but arousable. He seems reasonably well oriented and appropriate. Cranial nerves 2 through 12 are intact. He moves his extremities symmetrically and appropriately. He has intact strength and sensation and coordination of his extremities. He is sleepy but neurologically intact Extrem Other: No peripheral edema Course Course Course Narrative: Time: 10:28 Date: 04/23/25 Provider: YENNY Cade Patient in physician observation for psychiatric evaluation.? No acute events reported overnight. No current complaints. VS stable.? Patient was evaluated by CARE team this morning and [facility] bed search is plan. Will continue to monitor. Time: 11:40 Date: 04/23/25 Provider: Ramirez Celestin MD Physician observation ended at 11:40 hours. The patient was re-evaluated by the CARE team and I obtained the following information. The patient has a long history of mental illness and is followed by the Department of Mental Health. Patient initially presented with depression and requested respite but he is feeling better and does not want to wait for respite placement. His [facility] team is going to re-evaluate the patient on Monday04/25/2025. Therefore the patient will be discharged home. Medical Decision Making Medical Decision Making MDM Narrative: The patient is a 69-year-old male with a history of bipolar disorder who presents feeling a sense of feeling unwell. He says that he feels disoriented and forgetful. He feels as if he would like to go to psychiatric respite. He therefore took an Uber taxi to come to the hospital tonight. His physical exam is unremarkable although he seems somewhat drowsy from medications he took this evening. He denies having done anything to harm himself. Medically I think he is stable for disposition by the care team. The patient will be signed out to the oncoming team at the end of my shift. Lab Data 04/23/25 02:08 04/23/25 02:08 Labs: Lab Results 04/23/25 04/23/25 04/23/25 Range/Units 02:08 02:54 09:29 WBC 7.1 (4.8-10.8) X10*3/uL RBC 4.47 L (4.60-5.80) X10*6/uL Hgb 14.7 (14.0-18.0) g/dl Hct 41.2 L (42.0-52.0) % MCV 92.2 (80.0-98.0) fL MCH 32.9 (27.0-33.0) pg MCHC 35.7 (31.0-36.0) g/dl RDW 12.8 (11.0-16.0) % Plt Count 208 (160-400) X10*3/uL MPV 9.1 L (9.4-12.4) fL Immature Gran % (Auto) 0.4 (0.0-0.4) % Neut % (Auto) 51.3 (45-73) % Lymph % (Auto) 31.3 (20-40) % Kemper % (Auto) 9.8 (2-11) % Eos % (Auto) 5.9 H (0-4) % Baso % (Auto) 1.3 (0-2) % Lymph # (Auto) 2.2 (1.2-4.9) X10*3/uL Kemper # (Auto) 0.7 (0.1-1.2) X10*3/uL Eos # (Auto) 0.4 (0.0-0.4) X10*3/uL Baso # (Auto) 0.1 (0.0-0.2) X10*3/uL Abs Immat Gran (auto) 0.03 (0.00-0.03) X10*3/uL Absolute Neuts (auto) 3.6 (2.0-8.3) x10*3/uL Absolute Nucleated RBC 0.000 (0.0-0.012) X10*3/uL Nucleated RBC % (auto) 0.0 (0.0-0.2) /100WBC Sodium 139 (135-145) mmol/L Potassium 3.3 (3.3-5.1) mmol/L Chloride 107 (96-108) mmol/L Carbon Dioxide 24 (22-29) mmol/L Anion Gap 11 L (12-20) BUN 8 L (9-16) mg/dL Creatinine 0.66 (0.5-1.4) mg/dL Estim Creat Clear Calc 119.6 Estimated GFR > 60 Random Glucose 129 H (60-115) mg/dL Calcium 9.2 D (8.4-10.2) mg/dL Total Bilirubin 0.5 (0.0-1.0) mg/dL Direct Bilirubin 0.2 (0.0-0.5) mg/dL AST 44 H (5-37) U/L ALT 29 (0-40) U/L Alkaline Phosphatase 89 (39-117) U/L Total Protein 6.2 L (6.5-8.0) g/dL Albumin 4.0 (3.5-5.0) g/dL Urine Color Yellow Urine Appearance Clear Urine pH 6.5 (5.0-9.0) Ur Specific Ayden 1.010 (1.005-1.025) Urine Protein Negative (Neg-Trace) mg/dL Urine Glucose (UA) Negative (Negative) mg/dL Urine Ketones Negative (Negative) mg/dL Urine Blood Negative (Negative) Urine Nitrite Negative (Negative) Ur Leukocyte Esterase Negative (Negative) Urine RBC 0-2 (0-2) /HPF Urine WBC 0-5 (0-5) /HPF Ur Squamous Epith Cells 0-2 (0-2) /HPF Urine Bacteria None Seen (None Seen) Hyaline Casts 0-2 (0-2) /LPF Salicylates < 5.0 L (15-30) mg/dL Urine Opiates Screen Not Detected (Not Detect) Ur Buprenorphine Scrn Not Detected (Not Detect) ng/mL Ur Oxycodone Screen Not Detected (Not Detect) ng/mL Urine Methadone Screen Not Detected (Not Detect) ng/mL Urine Fentanyl Screen Not Detected (Not Detect) Acetaminophen < 3 (<30) mcg/mL Ur Barbiturates Screen Not Detected (Not Detect) Ur Phencyclidine Scrn Not Detected (Not Detect) Ur Amphetamines Screen Not Detected (Not Detect) U Benzodiazepines Scrn Not Detected (Not Detect) Urine Cocaine Screen Not Detected (Not Detect) U Marijuana (THC) Screen Not Detected (Not Detect) Ethyl Alcohol < 10 mg/dL Discharge Plan Discharge Clinical Impression: Bipolar disorder Patient Disposition: Home, Self-Care Additional Instructions: You were evaluated by our care team. Please follow their discharge instructions. Continue taking your medications as prescribed. You were seen in our Emergency Department today for treatment of a behavioral health issue. It is important after your visit that you follow up with either your behavioral health provider or a primary care doctor within 7 days.? If you have trouble finding a therapist you can reach out to [address] [phone] The National Suicide and Crisis Lifeline can be reached 7 days a week 24 hours a day.? Call 988 to speak with someone.? Return for any worsening symptoms or concerns such as thoughts of self harm or harm to others. Please call 911 if you feel your mental health is worsening.? Prescriptions: No Action Anoro Ellipta 62.5-25 mcg/actuation blister with device 1 inh inhalation DAILY 30 Days Qty: 1 4RF omeprazole 40 mg capsule,delayed release(DR/EC) 40 mg PO BID 30 Days Qty: 60 5RF clonazepam 0.5 mg tablet 0.5 mg PO DAILY PRN lamotrigine 150 mg tablet 150 mg PO DAILY hydroxyzine HCl 25 mg tablet 25 mg PO BID quetiapine 100 mg tablet PO olanzapine 10 mg tablet 10 mg PO BEDTIME alendronate 70 mg tablet 70 mg PO QWEEK atorvastatin 20 mg tablet 20 mg PO DAILY albuterol sulfate [Ventolin HFA] 90 mcg/actuation HFA aerosol inhaler inhalation Print Language: Namibian
[2025-04-23 02:18] LABS: MANUAL DIFF FLAG NO
[2025-04-23 02:19] LABS: Basophils Absolute Auto 0.1 X10*3/uL (0.0-0.2); Basophils Percent Auto 1.3 % (0-2); Eosinophils Absolute Auto 0.4 X10*3/uL (0.0-0.4); Eosinophils Percent Auto 5.9 % (0-4); Hematocrit 41.2 % (42.0-52.0); Hemoglobin 14.7 g/dl (14.0-18.0); Imm Gran Abs Auto 0.03 X10*3/uL (0.00-0.03); Imm Gran Pct Auto 0.4 % (0.0-0.4); Lymphocytes Absolute Auto 2.2 X10*3/uL (1.2-4.9); Lymphocytes Percent Auto 31.3 % (20-40); Mean Corpuscular HGB Conc 35.7 g/dl (31.0-36.0); Mean Corpuscular Hemoglobin 32.9 pg (27.0-33.0); Mean Corpuscular Volume 92.2 fL (80.0-98.0); Mean Platelet Volume 9.1 fL (9.4-12.4); Monocytes Absolute Auto 0.7 X10*3/uL (0.1-1.2); Monocytes Percent Auto 9.8 % (2-11); Neutrophils Absolute Auto 3.6 x10*3/uL (2.0-8.3); Neutrophils Percent Auto 51.3 % (45-73); Platelet Count 208 X10*3/uL (160-400); Red Blood Count 4.47 X10*6/uL (4.60-5.80); Red Cell Distribution Width 12.8 % (11.0-16.0); White Blood Count 7.1 X10*3/uL (4.8-10.8)
[2025-04-23 02:35] LABS: Alanine Aminotransferase 29 U/L (0-40); Alkaline Phosphatase 89 U/L (39-117); Anion Gap 11 (12-20); Aspartate Amino Transferase 44 U/L (5-37); Bilirubin Direct 0.2 mg/dL (0.0-0.5); Bilirubin Total 0.5 mg/dL (0.0-1.0); Blood Urea Nitrogen 8 mg/dL (9-16); Calcium 9.2 mg/dL (8.4-10.2); Carbon Dioxide 24 mmol/L (22-29); Chloride 107 mmol/L (96-108); Creatinine Clr Calc Pharmacy 119.6; Estimated Glomerular Filt Rate > 60; Glucose Random 129 mg/dL (60-115); Potassium 3.3 mmol/L (3.3-5.1); Sodium 139 mmol/L (135-145); Total Protein 6.2 g/dL (6.5-8.0)
[2025-04-23 03:13] LABS: Ethanol < 10 mg/dL
[2025-04-23 03:27] LABS: Acetaminophen LAB < 3 mcg/mL (<30); Salicylate < 5.0 mg/dL (15-30)
--- NOTE | 2025-04-23 04:11 | ECG_ITS ---
Test Reason : WEAKNESS Blood Pressure : */* mmHG Vent. Rate : 69 BPM Atrial Rate : 69 BPM P-R Int : 162 ms QRS Dur : 126 ms QT Int : 412 ms P-R-T Axes : 68 -48 16 degrees QTcB Int : 441 ms Normal sinus rhythm with sinus arrhythmia Right bundle branch block Left anterior fascicular block Bifascicular block Abnormal ECG When compared with ECG of 13-Apr-2025 10:18, Criteria for Septal infarct are no longer Present Referred By: Segundo Reddy Electronically Signed By: RENETTA HAQ MD
[2025-04-23 05:42] VITALS: BP 92/56; PULSE 69; RESP 12; O2SAT 93
[2025-04-23 05:46] VITALS: TEMP 36.4
[2025-04-23 09:04] VITALS: BP 96/62; PULSE 67; RESP 17; TEMP -13.6; TEMP 7.6; O2SAT 97
--- NOTE | 2025-04-23 09:19 | MHC.CARE ---
Patient seen by the CARE team. Presents as depressed, seeking A-[facility] loc.
[2025-04-23 09:52] LABS: Appearance Urine Clear; Color Urine Yellow; Glucose Urine UA Negative (Negative); Leukocyte Esterase Urine Negative (Negative); Nitrite Urine Negative (Negative); PH 6.5 (5.0-9.0); Urine Blood Negative (Negative); Urine Ketones Negative (Negative); Urine Protein Negative (Neg-Trace)
[2025-04-23 09:57] LABS: Bacteria Urine None Seen (None Seen); Hyaline Casts Urine 0-2 /LPF (0-2); RBC Urine 0-2 /HPF (0-2); Squamous Epithelial Cell Urine 0-2 /HPF (0-2); WBC Urine 0-5 /HPF (0-5)
[2025-04-23 10:09] LABS: Amphetamine Screen Urine Not Detected (Not Detect); Barbiturates, Urine Not Detected (Not Detect); Benzodiazepines Screen Urine Not Detected (Not Detect); Buprenorphine Scr Not Detected (Not Detect); Cannabinoid Screen Urine Not Detected (Not Detect); Cocaine Screen Urine Not Detected (Not Detect); Fentanyl, urine Not Detected (Not Detect); Methadone Screen, Urine Not Detected (Not Detect); Opiate Screen Urine Not Detected (Not Detect); Oxycodone Screen Urine Not Detected (Not Detect); Phencyclidine Screen Urine Not Detected (Not Detect)
[2025-04-23 12:07] VITALS: BP 96/62; PULSE 67; RESP 17; TEMP 36.6; O2SAT 97
== END 2025-04-23 12:07 | disposition home or self-care (01) ==
PROVIDERS: Emergency Provider Emergency Medicine; PCP Internal Medicine Geriatric Medicine
DX: F31.9 Bipolar disorder, unspecified (principal); Z72.89 Other problems related to lifestyle; Z59.19 Other inadequate housing; F17.210 Nicotine dependence, cigarettes, uncomplicated; Z79.899 Other long term (current) drug therapy
CPT/HCPCS: 36415; 80048; 80076; 80143; 80179; 80307; 81001; 85025; 93005; 99284; S9485

== ENCOUNTER → 2025-04-23 04:11 | Outpatient (BNV) | payer MEDICARE, MEDICAID, SELFPAY | PROVIDERS: Emergency Provider Emergency Medicine; PCP Internal Medicine Geriatric Medicine; Visit Provider Internal Medicine Cardiovascular Disease | DX: I45.2 Bifascicular block (principal); I49.9 Cardiac arrhythmia, unspecified | CPT/HCPCS: 93010 ==

== ENCOUNTER 2025-07-09 14:24 | Outpatient (AMB) | payer MEDICARE, MEDICAID, SELFPAY ==
[2025-07-09 14:27] VITALS: BP 110/62; PULSE 79; O2SAT 95; BMI 29.7
--- NOTE | 2025-07-09 14:27 | MHC.OFFVIS ---
Vital Signs 07/09/25 14:27 Height 5 ft 10 in Weight 207 lb BMI 29.7 BP 110/62 Blood Pressure Location Rt brachial Position Sitting Pulse 79 Pulse Source Pulse Oximeter Pulse Oximetry (%) 95 Oxygen Delivery Method Room Air Intake Visit Reasons: Emphysema Allergies Penicillins Allergy (Unknown, Verified 07/09/25 14:31) Facial flushing and red face monosodium glutamate Adverse Reaction (Unknown, Verified 07/09/25 14:31) Funny taste in mouth HPI HPI Emphysema: Details: 69-year-old gentleman, active approximately 40 pack-year smoker now followed for COPD of unclear severity as patient is not able to perform pulmonary function testing. He continues on Anoro and albuterol MDI with reasonable control of his underlying COPD symptoms. His GERD symptoms reasonably well controlled on PPI. He denies recent exacerbations. [facility] Medical History (Updated 04/24/25 @ 00:00 by Bebeto Dachristoson) Nicotine dependence, cigarettes, uncomplicated History of small bowel obstruction Bipolar disorder with psychotic features Sensorineural hearing loss (SNHL) of both ears GERD (gastroesophageal reflux disease) Osteopenia Surgical History (Updated 09/23/22 @ 14:03 by Marichuy Metcalf PA-C) History of laparotomy Social History (Updated 10/08/24 @ 13:35 by Erika Plasencia Aidan) Patient Tobacco Use Status: Current everyday Tobacco user Tobacco use type: Cigarette Cigarette Packs Per Day: 0.5 Cigarettes Per Day: 15 Review of Systems Const Denies daytime sleepiness, Denies excessive sweating, Denies fatigue, Denies fever(s), Denies lethargy, Denies malaise, Denies night sweats, Denies snoring and Denies weight loss Eyes Denies blurry vision and Denies itchy eyes ENT Denies nasal congestion, Denies post nasal drip, Denies sinus pain, Denies sinus pressure and Denies other ( Thrush) Card Denies chest pain, Denies pedal edema, Denies dyspnea, Denies orthopnea and Denies paroxysmal nocturnal dyspnea Resp Denies cough, Denies hemoptysis, Denies excessive phlegm production, Denies dyspnea, Denies snoring and Denies wheezing GI Denies abdominal pain and Denies heartburn Musc Denies myalgias, Denies arthralgias and Denies joint swelling Skin/Breast Denies rash Neuro Denies memory loss and Denies seizure-like activity Psych Denies abnormal sleep pattern, Denies anxiety and Denies memory loss Endo Denies excessive sweating, Denies fatigue and Denies heat intolerance Sebas/Lymph Denies easy bruising Aller/Immun Denies itchy eyes, Denies seasonal rhinorrhea and Denies wheezing Physical Exam Vital Signs: Last Vital Signs Pulse 79 07/09/25 14:27 BP 110/62 07/09/25 14:27 Pulse Ox 95 07/09/25 14:27 Oxygen Delivery Method Room Air 07/09/25 14:27 BMI result Body Mass Index 29.7 Const General: no acute distress and alert Nutritional Appearance: not obese Orientation/consciousness: Other orientation findings ( oriented) HEENT Head: Yes atraumatic Eyes General: appearance normal, both eyes and all related structures Sclerae: sclerae normal EOM: EOMs intact bilaterally Neck Neck: Yes supple Lymphatic: no lymphadenopathy noted Resp Effort & Inspection: normal respiratory effort and no use of accessory muscles Auscultation: clear to auscultation bilaterally Cardio Rate: regular rate Rhythm: regular rhythm Heart sounds: no gallops, no murmurs and no rubs Skin General skin exam: other ( warm) Extrem General: No clubbing, No cyanosis and No edema Assessment & Plan Assessment & Plan (1) Pulmonary emphysema: Code(s): J43.9 - Emphysema, unspecified Category: Medical Plan: Well controlled on current regimen of Anoro and albuterol MDI. Continue current regimen. (2) Nicotine dependence, cigarettes, uncomplicated: Comment: (current smoker, onset 16, 1ppd x 35yrs, 35pyh) Code(s): F17.210 - Nicotine dependence, cigarettes, uncomplicated Category: Medical Plan: Results of prior lung cancer screening CT chest reviewed, no worrisome nodules. Continue with yearly screening, next in October of 2025. Coding Level of Care Code Est Pt Level 4 (32322) Diagnoses Pulmonary emphysema J43.9 Nicotine dependence, cigarettes, uncomplicated F17.210
--- OUTSIDE RECORDS SUMMARY | 2025-07-09 15:27 | XMS_ITS | Clinical Summary ---
Author Organization [employer] Address [address] [place] [address] 7 [place] [address] Care Team Providers Care Blower Insulator Name Role Phone Name, Petey EWING Primary Care Provider [phone] Allergies Active Allergy Reactions Criticality Noted Date Comments Penicillins 12/24/2013 Medications clonazePAM (KlonoPIN) 0.5 MG tablet take 1 tablet by oral route every day at as needed for insomnia or agitation Active dextran 70-hypromellose (artificial tears) 0.1-0.3 % ophthalmic solution one drop in each eye Q 8hrs as needed 06/03/20 22 Active Artificial Tears 0.2-0.2-1 % solution PLACE 1 DROP INTO EACH EYE EVERY 8 HOURS NEEDED 06/03/20 22 Active hydrOXYzine HCl (Atarax) 25 MG tablet TAKE 1 OR 2 TABLETS BY MOUTH AT BEDTIME, NEEDED FOR SLEEP 05/31/20 22 Active ipratropium-alb uterol (Duo-Neb) 0.5-2.5 mg/3 mL nebulizer solution Inhale 3 mL every 6 (six) hours. 02/17/20 20 Active lamoTRIgine (LaMICtal) 150 MG tablet Take 1 tablet by mouth at bed time. 05/14/20 18 Active Lidocaine HCl 3 % cream Apply topically at bed time. 05/19/20 20 Active OLANZapine (ZyPREXA) 10 MG tablet Take 1 tablet by mouth at bed time. 05/14/20 18 Active simethicone (Mylicon) 125 MG chewable tablet take every 6 hours as needed for gas 05/14/20 18 Active QUEtiapine (SEROquel) 100 MG tablet take 1 tablet by oral route every day; may take additional tablet if needed 05/14/20 18 Active Anoro Ellipta 62.5-25 MCG/ACT aerosol powder 11/17/19 24 Active docusate sodium (Colace) 100 MG capsule TAKE 1 CAPSULE BY MOUTH EVERY DAY 90 capsule 01/26/20 24 Active omeprazole OTC (PriLOSEC OTC) 20 MG EC tabletIndicatio ns:Heartburn TAKE 1 TABLET BY MOUTH EVERY DAY IF NEEDED 90 tablet 06/17/20 24 Active albuterol (Ventolin HFA) 108 (90 Base) MCG/ACT inhaler Inhale 2 puffs by mouth every 4 to 6 hours as needed 18 g 5 09/02/20 24 Active Emollient (CeraVe Daily Moisturizing) lotion Apply thin layer once a day to affected skin 355 mL 2 10/30/20 24 Active atorvastatin (Lipitor) 20 MG tabletIndicatio ns:High cholesterol TAKE 1 TABLET (20 MG) BY MOUTH IN THE EVENING. 28 tablet 3 12/31/19 25 Active alendronate (Fosamax) 70 MG tabletIndicatio ns:Osteoporosis , unspecified osteoporosis type, unspecified pathological fracture presence Take 1 tablet (70 mg) by mouth every 7 (seven) days. 4 tablet 4 01/01/20 25 Active triamcinolone (Kenalog) 0.1 % cream Apply topically 2 times daily. 45 g 2 06/24/20 25 Active hydrOXYzine pamoate (Vistaril) 50 MG capsule Take 1 capsule by mouth in the morning. 05/05/20 20 025 Discontinued(T herapy completed) nicotine (Nicoderm, Step 3) 7 MG/24HR patch Place 1 patch on the skin at bed time. 03/28/20 18 025 Discontinued(I neffective) nicotine polacrilex (Nicorette) 4 MG gum Take by mouth every 2 (two) hours. 06/12/20 19 025 Discontinued(I neffective) triamcinolone (Kenalog) 0.1 % cream apply by topical route 2 times every day a thin layer to the affected area(s) for 2 weeks 04/14/20 21 025 Discontinued(R eorder (will not trigger notification to Pharmacy)) QUEtiapine (SEROquel) 100 MG tablet TAKE ONE (1) TABLET BY MOUTH AT BEDTIME. MAY REPEAT X 1. 10/11/20 025 Discontinued(D uplicate order (will not trigger notification to Pharmacy)) nicotine polacrilex (Commit) 4 MG lozengeIndicati ons:Smoking DISSOLVE 1 LOZENGE IN THE MOUTH EVERY 2 HOURS IF NEEDED FOR SMOKING CESSATION 100 lozenge 3 09/10/20 24 025 Discontinued(I neffective) Active Problems Patient Care Coordination No te [...] Encounters Date Type Department Care Team Description 06/24/2025 4:00 PM EDT Office Visit [address] [address] Petey Hood MD Mild chronic obstructive pulmonary disease (CMS/HCC) (Primary Dx); Calculus of gallbladder without cholecystitis without obstruction; Pruritus 06/24/2025 Travel 04/15/2025 Telephone [facility] MEDICINE [address] [place] [address] [phone] Petey Hood MD FYI from Last 3 Months Social History Tobacco Use Types Packs/Day Years Used Date Smoking Tobacco: Every Day Cigarettes Tobacco Cessation:Ready to Q uit: Not Asked; Counseling Given: Not Answered Alcohol Use Standard Drinks/Week Comments Yes 0 (1 standard drink = 0.6 oz pur e alcohol) occassionally Alcohol Answer Date Recorded How often do you have a drink containing alcohol ? 1 06/24/2025 How many drinks containing a lcohol do you have on a typical day when you are drinking? 0 06/24/2025 How often do you have six or more drinks on one occasion? 0 06/24/2025 Depression Answer Date Recorded Patient Health Questionnaire-9 [...] Sign Reading Time Taken Comments Blood Pressure 115/62 06/24/2025 3:59 PM EDT Pulse 79 06/24/2025 3:59 PM EDT Temperature 36.8 C (98.2 F) 06/24/2025 3:59 PM EDT Respiratory Rate 12 06/24/2025 3:59 PM EDT Oxygen Saturation 95% 06/24/2025 3:59 PM EDT Inhaled Oxygen Concentration - - Weight 90.5 kg (199 lb 9.6 oz) 06/24/2025 3:59 P M EDT Height 177.8 cm (5' 10 ) 06/24/2025 3:59 PM EDT Body Mass Index 28.64 06/24/2025 3:59 PM EDT Plan of Treatment Upcoming Encounters Date Type Department Care Team (Late st Contact Info) Description 08/04/2025 1:00 PM EDT Office Visit [facility] OPTOMETRY [address] [place] [address] Jadon, Ayah, OD [address] [place] [address] Health Maintenance Due Date Last Done Comments Anal Pap 1955 CT Colonography 1955 Colonoscopy 1955 Dental Oral Exam 1955 Dental Prophylaxis 1955 Dental X-Ray: Bitewings 1955 Dental X-Ray: Full Mouth 1955 FIT 1955 FOBT 1955 Sigmoidoscopy 1955 Hepatitis C Screening 1973 DTaP/Tdap/Td Vaccines (1 [...] 60-74 years 1-dose series) 2015 COVID-19 Vaccine (1 - 2023-2 5 season) 2024 Depression Screening 09/04/2024 09/04/2023, 09/04/2023 Colorectal Cancer Screening 06/27/2025 FIT DNA/Cologuard 06/27/2025 06/27/2022 Influenza Vaccine (#1) 2025 Alcohol/Substance Use Screening 06/24/2026 06/24/2025 SDOH Screening 06/24/2026 06/24/2025 Tobacco Screening 06/24/2026 06/24/2025 Lipid Panel 03/27/2030 03/27/2025, 10/20/2023, 06/16/2022 HIB Vaccines Aged Out No [...] Procedure Name Priority Date/Time Associated Diagnosis Comments DRUG MONITOR, PANEL 1, SCREEN, URINE Routine 04/23/2025 9:29 AM EDT URINALYSIS, COMPLETE, WITH REFLEX TO CULTURE Routine 04/23/2025 9:29 AM EDT ACETAMINOPHEN LEVEL Routine 04/23/2025 2 :54 AM EDT SALICYLATE Routine 04/23/2025 2:54 AM EDT CBC WITH AUTO DIFFERENTIAL Routine 04/23/2025 2:08 AM EDT LIPID PANEL, STANDARD Routine 03/27/2025 12:11 PM EDT Mild chronic obstructive pulmonary disease (CMS/HCC) Osteoporosis without current pathological fracture, unspecified osteoporosis type High cholesterol HM FIT DNA/COLOGUARD CANCER SCREENING Routine 06/27/2022 from Last 3 Months or Most Recently Relevant to Health Maintenance Results * Urinalysis, Complete, with Reflex to Culture (04/23/2025 9:29 AM EDT) Color Urine Yellow [facility] Appearance Urine Clear [facility] PH 6.5 5.0 - 9.0 [facility] Glucose Urine UA Negative Negative mg/dL [facility] Urine Blood Negative Negative [facility] Specific [place] - Urine 1.010 1.005 - 1.025 [facility] Urine Protein Negative Neg-Trace mg/dL [facility] Urine Ketones Negative Negative mg/dL [facility] Nitrite Urine Negative Negative [facility] Leukocyte Esterase Urine Negative Negative [facility] RBC Urine 0-2 0 - 2 /HPF [facility] Urine WBC 0-5 0 - 5 /HPF [facility] Urine Squamous Epithelial Cell 0-2 0 - 2 /HPF [facility] Urine Bacteria None Seen None Seen [facility] Hyaline Casts, Urine 0-2 0 - 2 /LPF [facility] 04/23/2025 9:29 AM EDT 04/23/2025 9:43 AM EDT Narrative [facility] - 04/23/2025 9:58 AM EDT [id number], Clean Catch us Generic External Data Provider LAB URINE ORDERAB LES Final Result [facility] [address] [place] [address] [phone] * Drug Monitoring, Panel 1, Screen, Urine (04/23/2025 9:29 AM EDT) Opiate Screen Urine Not Detected Not Detect [facility] Comment:Opiate cut-off is 30 0 ng/mL.Positive results are unconfirmed and should not be used fornon-medical purposes. Barbiturates, Urine Not Detected Not Detect [facility] Comment:Barbiturate cut-off is 200 ng/mL.Positive results are unconfirmed and should not be used fornon-medical purposes. Phencyclidine Screen Urine Not Detected Not Detect [facility] Comment:Phencyclidine cut-of f is 25 ng/mL.Positive results are unconfirmed and should not be used fornon-medical purposes. Amphetamine Screen Urine Not Detected Not Detect [facility] Comment:Amphetamine cut-off is 1000 ng/mL.Positive results are unconfirmed and should not be used fornon-medical purposes. Benzodiazepines Screen Urine Not Detected Not Detect [facility] Comment:Benzodiazepine cut-o ff is 200 ng/mL.Positive results are unconfirmed and should not be used fornon-medical purposes. Cocaine Screen Urine Not Detected Not Detect [facility] Comment:Cocaine cut-off is 3 00 ng/mL.Positive results are unconfirmed and should not be used fornon-medical purposes. Cannabinoid Screen Urine Not Detected Not Detect [facility] Comment:Cannabinoid cut-off is 50 ng/mL.Positive results are unconfirmed and should not be used fornon-medical purposes. Methadone Screen, Urine Not Detected Not Detect ng/mL [facility] Comment:Methadone cut-off is 300 ng/mL.Positive results are unconfirmed and should not be used fornon-medical purposes. FENTANYL URINE Not Detected Not Detect [facility] Comment:Fentanyl cut-off is 1 ng/mL.Positive results are unconfirmed and should not be used fornon-medical purposes. Oxycodone Urine Screen Not Detected Not Detect ng/mL [facility] Comment:Oxycodone cut-off is 100 ng/mL.Positive results are unconfirmed and should not be used fornon-medical purposes. Buprenorphine Screen Not Detected Not Detect ng/mL [facility] Comment:Buprenorphine cut-of f is 5 ng/mL.Positive results are unconfirmed and should not be used fornon-medical purposes. 04/23/2025 9:29 AM EDT 04/23/2025 9:43 AM EDT us Generic External Data Provider LAB URINE ORDERAB LES Final Result Performing Organization Address [facility] de Phone Number [facility] [address] [place] [phone] * Acetaminophen level (04/23/2025 2:54 AM EDT) Acetaminophen LAB <3 <30 mcg/mL [facility] 04/23/2025 2:54 AM EDT 04/23/2025 3:00 AM EDT Generic External Data Provider LAB BLOOD ORDERAB LES Final Result Performing Organization Address [facility] Phone Number [facility] [address] [place] [phone] * (ABNORMAL) Salicylate (04/23/2025 2:54 AM EDT) Pathologist [facility] Salicylate <5.0(L) 15 - 30 mg/dL [facility] 04/23/2025 2:54 AM EDT 04/23/2025 3:00 AM EDT Generic External Data Provider LAB BLOOD ORDERAB LES Final Result Performing Organization Address [facility] de Phone Number [facility] [address] [place] [phone] * (ABNORMAL) CBC auto differential (04/23/2025 2:08 AM EDT) White Blood Count 7.1 4.8 - 10.8 X10*3/uL [facility] Red Blood Count 4.47(L) 4.60 - 5.80 X10*6/uL [facility] Hemoglobin 14.7 14.0 - 18.0 g/dl [facility] Hematocrit 41.2(L) 42.0 - 52.0 % [facility] Mean Corpuscular Volume 92.2 80.0 - 98.0 fL [facility] Mean Corpuscular Hemoglobin 32.9 27.0 - 33.0 pg [facility] Mean Corpuscular HGB Conc 35.7 31.0 - 36.0 g/dl [facility] Red Cell Distribution Width 12.8 11.0 - 16.0 % [facility] Platelet Count 208 160 - 400 X10*3/uL [facility] Mean Platelet Volume 9.1(L) 9.4 - 12.4 fL [facility] Neutrophils Percent Auto 51.3 45 - 73 % [facility] Imm Gran Pct Auto 0.4 0.0 - 0.4 % [facility] Lymphocytes Percent Auto 31.3 20 - 40 % [facility] Monocytes Percent Auto 9.8 2 - 11 % [facility] Eosinophils Percent Auto 5.9(H) 0 - 4 % [facility] Basophils Percent Auto 1.3 0 - 2 % [facility] NRBC Pct Auto 0.0 0.0 - 0.2 /100WBC [facility] Neutrophils Absolute Auto 3.6 2.0 - 8.3 x10*3/uL [facility] Imm Gran Abs Auto 0.03 0.00 - 0.03 X10*3/uL [facility] Lymphocytes Absolute Auto 2.2 1.2 - 4.9 X10*3/uL [facility] Monocytes Absolute Auto 0.7 0.1 - 1.2 X10*3/uL [facility] Eosinophils Absolute Auto 0.4 0.0 - 0.4 X10*3/uL [facility] Basophils Absolute Auto 0.1 0.0 - 0.2 X10*3/uL [facility] NRBC Abs Auto 0.000 0.0 - 0.012 X10*3/uL [facility] 04/23/2025 2:08 AM EDT 04/23/2025 2:16 AM EDT us Generic External Data Provider LAB BLOOD ORDERAB LES Final Result Performing Organization Address [facility] Co de Phone Number [facility] [address] [place] [phone] [phone] * Lipid Panel, Standard (03/27/2025 12:11 PM EDT) Triglycerides 63 <150 mg/dL [facility] Comment:Desirable Triglyceri de: less than 150 mg/dLBorderline High Triglyceride 150-199 mg/dLHigh Triglyceride: 200-499 mg/dLVery High Triglyceride: greater than or equal to 5OO mg/dL Cholesterol 116 <200 mg/dL [facility] Comment:Desirable Cholestero l: less than 200 mg/dLBorderline High Cholesterol: 200-239 mg/dLHigh Cholesterol: greater than 239 mg/dL LDL Cholesterol Calculated 59 <100 mg/dL [facility] Comment:Desirable LDL: less than 100 mg/dLNear Optimal/Above Optimal LDL: 110- 129 mg/dLBorderline High LDL: 130-159 mg/dLHigh LDL: 160-189 mg/dLVery High LDL: greater than or equal to 190 mg/dL HDL Cholesterol 45 >40 mg/dL [facility] Comment:Desirable HDL: great er than 40 mg/dL Note: This HDL assay may give artificially low results in patients with liver disease. Blood Venous blood specimen / Unknown 03/27/2025 12:11 PM EDT 03/27/2025 1:22 PM EDT us Petey Hood MD LAB BLOOD ORDERABLES Final Resul t Performing Organization Address City/[facility]/ZIP Co de Phone Number [facility] [address] [place] [phone] * FIT DNA/Cologuard Cancer Screening (06/27/2022) Cologuard Cancer Screen Negative Stool us Petey Hood MD HEALTH MAINTENANCE Final Result from Last 3 Months or Most Recently Relevant to Health Maintenance Insurance [place] [id number] [facility] STANDARD DENTAL-[facility] MEDICAID STAND ADULT Care Teams Blower Insulator Relationship Specialty Start Date End Date Name, MD Petey [address] [place] [phone] PCP - General Family Medicine 01/27/16
--- OUTSIDE RECORDS SUMMARY | 2025-07-09 15:27 | XMS_ITS | Encounter Summary ---
Author Organization [employer] Address [address] [place] [address] 7 [place] [address] Care Team Providers Care Electric Welder Helper Name Role Phone Name, Petey EWING Primary Care Provider [phone] Reason for Visit * Reason Onset Date Comments Reschedule 11/01/2023 Encounter Details Date Type Department Care Team ([facility] st Contact Info) Description 11/01/2023 Telephone [facility] MEDICINE [address] [place] [address] Name, MD Petey [address] [place] [address] Reschedule Social History Tobacco Use Types Packs/Day [...] enough money to get more: Never True 10/ Transportation Answer Date Recorded In the past [...] follow up appointment. Please contact pt at [phone] documented in this encounter Plan of Treatment Upcoming Encounters Date Type Department Care Team (Late st Contact Info) Description 08/04/2025 1:00 PM EDT Office Visit [facility] OPTOMETRY [address] [place] [address] Jadon, Ayah, OD [address] [place] [address] documented as of this encounter Visit Diagnoses Not on filedocumented in this encounter Additional Health Concerns Assessment Noted Time PHQ-9 Depression Total Score: 7 09/04/20 2:09 PM EDT documented as of this encounter Care Teams Electric Welder Helper Relationship Specialty Start Date End Date Name, MD Petey [address] [place] [address] PCP - General Family Medicine 01/27/16 Olivia Carmona circulation representative 10/25/23 12/28/23 documented as of this encounter
--- OUTSIDE RECORDS SUMMARY | 2025-07-09 15:27 | XMS_ITS | Encounter Summary ---
Author Organization [employer] Address [address] [place] [address] [address] [place] [address] Care Team Providers Care Sheet Mill Supervisor Name Role Phone Name, Petey EWING Primary Care Provider [phone] Reason for Visit * Reason Onset Date Comments Referral 12/27/2023 Encounter Details Date Type Department Care Team ([facility] st Contact Info) Description 12/27/2023 Telephone [facility] MEDICINE [address] [place] [address] Name, MD Petey [address] [place] [address] Referral Social History Tobacco Use Types Packs/Day [...] - 12/28/2023 4:06 PM EST T/C to [phone] x 2 pm to [facility] for further enquiry for below message, no answer. LVM to callback on [phone]. * Telephone Encounter - Mike Ortez - 12/28/2023 3:08 PM EST Tc from [facility] ([facility]) returning call regarding message prior. * Telephone Encounter - Manisha Orosco RN - 12/28/2023 1:17 PM EST T/C to [phone] to [facility] for further enquiry for below message, no answer. LVM to call back on [phone]. * Telephone Encounter - Mike Ortez - 12/27/2023 4:13 PM EST TC from [facility] ([facility] Outreach) worker requesting new referral DATE: N/A TIME: N/A Location: [address] [place] [address] Facility: [facility] Dr. Martinez Type of Specialist: Podiatry If any questions you can contact [facility] at [phone] documented in this encounter Plan of Treatment Upcoming Encounters Date Type Department Care Team (Late st Contact Info) Description 08/04/2025 1:00 PM EDT Office Visit [facility] OPTOMETRY [address] [place] [address] Jadon, Megan, OD [address] [place] [address] documented as of this encounter Visit Diagnoses Not on filedocumented in this encounter Additional Health Concerns Assessment Noted Time PHQ-9 Depression Total Score: 7 09/04/20 2:09 PM EDT documented as of this encounter Care Teams Sheet Mill Supervisor Relationship Specialty Start Date End Date Name, MD Petey [address] [place] [address] PCP - General Family Medicine 01/27/16 Olivia Carmona fence manufacture supervisor 10/25/23 12/28/23 documented as of this encounter
--- OUTSIDE RECORDS SUMMARY | 2025-07-09 15:27 | XMS_ITS | Clinical Summary ---
Author Organization [facility] Address [address] [place] [address] Phone Care Team Providers Care Verification Specialist Name Role Phone Name, Petey EWING Primary Care Provider Allergies Active Allergy Reactions Criticality Noted Date [...] Mass Index - - Plan of Treatment Upcoming Encounters Date Type Department Care Team ([facility] Contact Info) Description 08/13/2025 2:30 PM EDT Office Visit Orthopedic Surgery - [place] [address] [facility] [address] [place] [phone] Aramis Martinez, DPM [address] [place] [phone] Health Maintenance Due Date Last Done Comments [...] Screen 09/14/2024 Colorectal Cancer Screening: Colonoscopy 09/14/2024 Falls Risk Assessment 09/14/2024 Hepatitis C Screening 09/14/2024 Medicare Annual Wellness Visit 09/14/2024 Social Influencers of Health Screening 09/14/2024 Depression Screening 11/13/2024 Influenza Vaccine (#1) 2025 Cholesterol Screening (Lipid Panel) 10/20/2028 10/20/2023 [...] Insurance MEDICARE [place]ICAID - [place] Care Teams Verification Specialist Relationship Specialty Start Date End Date Name, MD Petey [address] [place], [place] PCP - General 09/05/24
--- OUTSIDE RECORDS SUMMARY | 2025-07-09 15:27 | XMS_ITS | Encounter Summary ---
Author Organization [employer] Address [address] [place] [address] [address], [place] [address] Care Team Providers Care Casino Cashier Manager Name Role Phone Name, Petey EWING Primary Care Provider [phone] Reason for Visit * Reason Onset Date Comments New Orders 02/13/2023 Encounter Details Date Type Department Care Team ([facility] st Contact Info) Description 02/13/2023 Telephone [facility] MEDICINE [address] [place] [address] Name, MD Petey [address] [place] [address] New Orders Social History Tobacco Use Types [...] if any questions please contact Eliot at [phone] documented in this encounter Plan of Treatment Upcoming Encounters Date Type Department Care Team (Late st Contact Info) Description 08/04/2025 1:00 PM EDT Office Visit [facility] OPTOMETRY [address] [place] [address] Ayah Diop, OD [address] [place] [address] documented as of this encounter Visit Diagnoses Not on filedocumented in this encounter Care Teams Casino Cashier Manager Relationship Specialty Start Date End Date Name, MD Petey [address] [place] [address] PCP - General Family Medicine 01/27/16 Olivia Carmona RN Care Manager 10/25/23 12/28/23 documented as of this encounter
== END 2025-07-09 14:48 | disposition home or self-care (01) ==
LOC: HO.HPS 14:24
PROVIDERS: PCP Internal Medicine Geriatric Medicine; Visit Provider Internal Medicine Pulmonary Disease
DX: J43.9 Emphysema, unspecified (principal); F17.210 Nicotine dependence, cigarettes, uncomplicated
CPT/HCPCS: 99214

== ENCOUNTER → 2025-07-09 14:24 | Outpatient (BNVA) | payer MEDICARE, MEDICAID, SELFPAY | PROVIDERS: PCP Internal Medicine Geriatric Medicine; Visit Provider Internal Medicine Pulmonary Disease | DX: J43.9 Emphysema, unspecified (principal); F17.210 Nicotine dependence, cigarettes, uncomplicated | CPT/HCPCS: 99212 ==